=== PATIENT | male | born 1925 | race Caucasian/White ===

== ENCOUNTER 2016-12-03 15:35 | Observation (INO) | payer MEDICARE ==
[2016-12-03] MEDS ORDERED: NS 0.9% 1000 ML* 1,000 ML IV ONE (16:37)
[2016-12-03 17:01] LABS: Hematocrit 23 % (42-52); Hemoglobin 7.7 g/dl (14.0-18.0); Mean Corpuscular HGB Conc 34 g/dl (31-36); Mean Corpuscular Hemoglobin 31 pg (27-31); Mean Corpuscular Volume 91 fL (80-94); Mean Platelet Volume 9 um3 (7.4-10.4); Red Blood Count 2.47 10^6/ul (4.0-5.4); Red Cell Distribution Width 14 % (10.5-15); White Blood Count 7.4 10^3/ul (3.5-10.8)
[2016-12-03 17:16] LABS: Albumin 3.4 g/dL (3.2-5.2); BUN/Creatinine Ratio 13.6 (8-20); Calcium 8.9 mg/dL (8.6-10.3); EGFR African American 32.6 (>60); EGFR Non-African American 25.3 (>60); Globulin 2.9 g/dL (2-4); Potassium 4.1 mmol/L (3.5-5.0); Total Bilirubin 0.4 mg/dL (0.2-1.0); Total Protein 6.3 g/dL (6.4-8.9)
[2016-12-03 17:23] LABS: Troponin I 0.05 ng/mL (<0.04)
[2016-12-03] MEDS ORDERED: Aspirin Low Dose CHEW TAB* 81 MG ONE (17:58)
[2016-12-03] MEDS ORDERED: Aspirin Low Dose CHEW TAB* 81 MG PO ONE (17:59)
--- NOTE | 2016-12-03 18:09 | RAD ---
HISTORY: Chest pain, shortness of breath, CHF COMPARISONS: December 26, 2008 VIEWS:1: Single frontal portable view of the chest at 5:55 PM FINDINGS: LINES AND TUBES: None. CARDIOMEDIASTINAL SILHOUETTE: The cardiomediastinal silhouette is normal for portable technique. PLEURA: There is a moderate left pleural effusion LUNG PARENCHYMA: There is confluent alveolar opacification of left lung base ABDOMEN: The upper abdomen is clear. There is no subphrenic gas. BONES AND SOFT TISSUES: The patient is status post median sternotomy. IMPRESSION: LEFT LOWER LUNG CONSOLIDATION WITH LEFT PLEURAL EFFUSION. RECOMMEND FOLLOW-UP UNTIL RESOLUTION TO EXCLUDE UNDERLYING PULMONARY PARENCHYMAL PATHOLOGY.
[2016-12-03] MEDS ORDERED: Acetaminophen TAB* 325 MG PO PRN (18:48)
[2016-12-03] MEDS ORDERED: Temazepam CAP* 15 MG PO PRN (18:48)
[2016-12-03] MEDS ORDERED: Amitriptyline TAB* 25 MG PO PRN (18:49)
[2016-12-03] MEDS ORDERED: Furosemide IV* 10 MG/ML 10 ML VIAL (100 MG) IV ONE (18:50)
[2016-12-03] MEDS ORDERED: amLODIPine TAB* 5 MG PO ONE (18:56)
[2016-12-03 19:24] LABS: Urine Bacteria Absent (Absent); Urine Bilirubin Negative (Negative); Urine Glucose 1+(50 mg/dL) (Negative); Urine Nitrite Negative (Negative)
[2016-12-03 19:29] LABS: Digoxin 1.6 ng/ml (0.8-2.0)
--- NOTE | 2016-12-03 20:00 | ED ---
Garry Pan Billy, scribed for Adrian Ray MD on 12/03/16 at 1630 . Complex/Multi-Sys Presentation - HPI Summary HPI Summary: Patient is an 89 year-old male coming to [facility] from his PCP at the [place] for evaluation of a Hgb of 6.9. Patient is a poor historian, but his is with him in the room. Patient denies any chest pain or shortness of breath. In fact, he is asymptomatic other than feeling generally fatigued and weak and a decreased appetite. Denies dizziness. Denies bloody or black stools. Denies fevers/chills. Patient states he has been anemic since an aortic valve replacement 2 years ago. - History Of Current Complaint Chief Complaint: EDGeneral Time Seen by Provider: 12/03/16 16:16 Hx Obtained From: Patient, Family/Print Inspector Timing: Constant Severity Currently: Moderate Severity Initially: Moderate Location: Negative Aggravating Factor(s): n/a Alleviating Factor(s): n/a Associated Signs And Symptoms: Positive: Weakness, Other - fatigued. Negative: SOB, Chest Pain - Allergies/Home Medications Allergies/Adverse Reactions: Allergies Allergy/AdvReac Type Severity Reaction Status Date / Time Aspirin [From Aggrenox] Allergy Unknown Verified 12/03/16 18:20 Reaction Details Dipyridamole [From Aggrenox] Allergy Unknown Verified 12/03/16 18:20 Reaction Details Home Medications: Home Medications Amitriptyline TAB* [Elavil TAB*] 25 mg PO BEDTIME PRN 12/03/16 [History Confirmed 12/03/16] Aspirin EC Low Dose* [Ecotrin EC Low Dose 81 MG*] 81 mg PO DAILY 12/03/16 [ History Confirmed 12/03/16] Carvedilol TAB* [Coreg TAB*] 12.5 mg PO BID 12/03/16 [History Confirmed 12/03/16 ] Citalopram TAB* [CeleXA TAB*] 20 mg PO QAM 12/03/16 [History Confirmed 12/03/16] Clopidogrel TAB* [Plavix TAB*] 75 mg PO QAM 12/03/16 [History Confirmed 12/03/16 ] Cyanocobalamin TAB* [Vitamin B12 TAB*] 1,000 mcg PO DAILY 12/03/16 [History Confirmed 12/03/16] Digoxin TAB* [Lanoxin TAB*] 0.125 mg PO QAM 12/03/16 [History Confirmed 12/03/16 ] Folic Acid TAB* [Folvite TAB*] 1 mg PO DAILY 12/03/16 [History Confirmed ] Furosemide TAB* [Lasix TAB*] 40 mg PO DAILY PRN 12/03/16 [History Confirmed ] amLODIPine TAB* [Norvasc 5 mg TAB*] 10 mg PO QAM 12/03/16 [History Confirmed ] PMH/Surg Hx/FS Hx/Imm Hx Endocrine/Hematology History: Reports: Hx Anemia Cardiovascular History: Reports: Other Cardiovascular Problems/Disorders - aortic valve replacement - Surgical History Surgery Procedure, Year, and Place: jun 2014 aortic heart valve, hernia repair , two eye inplants. nasal surgury. open heart in the year 1999 Infectious Disease History: No Infectious Disease History: Denies: Traveled Outside the [place] in Last 30 Days - Family History Known Family History: Positive: Unknown - Patient is a poor historian. - Social History Alcohol Use: PT DRANK LONG AGO, HASN'T DRANK IN YEARS. Substance Use Type: Reports: None Smoking Status (MU): Former Smoker Type: Pipe Amount Used/How Often: SMOKED A PIPE ON OCCASION Length of Time of Smoking/Using Tobacco: 2-3 YEARS Have You Smoked in the Last Year: No Review of Systems Positive: Fatigue, Other - low Hgb Negative: Chest Pain Negative: Shortness Of Breath Positive: Diarrhea - intermittent, ongoing, unchanged today, Other - decreased appetite Positive: Weakness All Other Systems Reviewed And Are Negative: Yes Physical Exam - Summary Physical Exam Summary: The patient is well-nourished in no acute distress and in no acute pain. Patient is a poor historian. The skin is warm and dry and skin color reflects adequate perfusion. Diminished turgor. HEENT: The head is normocephalic and atraumatic. The pupils are equal and reactive. The conjunctivae are pale, clear, and without drainage. Nares are patent and without drainage. Mouth reveals dry mucous membranes and the throat is without erythema and exudate. The external ears are intact. The ear canals are patent and without drainage. The tympanic membranes are intact. Neck is supple with full range of motion and non-tender. There are no carotid bruits. There is no neck vein distension. Respiratory: Chest is non-tender. Lungs are clear to auscultation and breath sounds are symmetrical and equal. Cardiovascular: Heart is regularly bradycardic. There is a holosystolic murmur heard best in left 2nd intercostal space. Abdomen: The abdomen is soft and non-tender. There are normal bowel sounds heard in all four quadrants and there is no organomegaly palpated. Musculoskeletal: There is no back pain noted. Extremities are non-tender with full range of motion. There is good capillary refill. There is pitting edema in the bilateral lower extremities. Neurological: Patient is alert and oriented to person, place and time. The patient has symmetrical motor strength in all four extremities. Cranial nerves are grossly intact. Deep tendon reflexes are symmetrical and equal in all four extremities. Psychiatric: The patient has an appropriate affect and does not exhibit any anxiety or depression. Triage Information Reviewed: Yes Vital Signs On Initial Exam: Initial Vitals Temp Pulse Resp BP Pulse Ox 96.8 F 63 20 195/33 100 12/03/16 15:40 12/03/16 15:40 12/03/16 15:40 12/03/16 15:40 12/03/16 15:40 Vital Signs Reviewed: Yes - [place] Coma Scale Coma Scale Total: 15 Diagnostics - Vital Signs Vital Signs Temp Pulse Resp BP Pulse Ox 12/03/16 16:10 98.2 F 66 18 214/53 100 12/03/16 15:40 96.8 F 63 20 195/33 100 - Laboratory Lab Results: Lab Results 12/03/16 12/03/16 12/03/16 Range/Units 16:51 16:51 16:51 WBC 7.4 (3.5-10.8) 10^3/ul RBC 2.47 L (4.0-5.4) 10^6/ul Hgb 7.7 L (14.0-18.0) g/dl Hct 23 L (42-52) % MCV 91 (80-94) fL MCH 31 (27-31) pg MCHC 34 (31-36) g/dl RDW 14 (10.5-15) % Plt Count 207 (150-450) 10^3/ul MPV 9 (7.4-10.4) um3 Neut % (Auto) 56.0 (38-83) % Lymph % (Auto) 19.9 L (25-47) % Dunn % (Auto) 13.0 H (1-9) % Eos % (Auto) 10.6 H (0-6) % Baso % (Auto) 0.5 (0-2) % Absolute Neuts (auto) 4.1 (1.5-7.7) 10^3/ul Absolute Lymphs (auto) 1.5 (1.0-4.8) 10^3/ul Absolute Monos (auto) 1.0 H (0-0.8) 10^3/ul Absolute Eos (auto) 0.8 H (0-0.6) 10^3/ul Absolute Basos (auto) 0 (0-0.2) 10^3/ul Absolute Nucleated RBC 0 10^3/ul Nucleated RBC % 0 INR (Anticoag Therapy) 0.93 (0.89-1.11) Sodium 137 (133-145) mmol/L Potassium 4.1 (3.5-5.0) mmol/L Chloride 107 (101-111) mmol/L Carbon Dioxide 24 (22-32) mmol/L Anion Gap 6 (2-11) mmol/L BUN 33 H (6-24) mg/dL Creatinine 2.43 H (0.67-1.17) mg/dL Est GFR ( Amer) 32.6 (>60) Est GFR (Non-Af Amer) 25.3 (>60) BUN/Creatinine Ratio 13.6 (8-20) Glucose 97 (70-100) mg/dL Lactic Acid (0.5-2.0) mmol/L Calcium 8.9 (8.6-10.3) mg/dL Magnesium 2.0 (1.9-2.7) mg/dL Total Bilirubin 0.40 (0.2-1.0) mg/dL AST 15 (13-39) U/L ALT 8 (7-52) U/L Alkaline Phosphatase 74 (34-104) U/L Troponin I 0.05 H* (<0.04) ng/mL B-Natriuretic Peptide ( - 100) pg/mL Total Protein 6.3 L (6.4-8.9) g/dL Albumin 3.4 (3.2-5.2) g/dL Globulin 2.9 (2-4) g/dL Albumin/Globulin Ratio 1.2 (1-3) Digoxin 1.6 (0.8-2.0) ng/ml Blood Type Antibody Screen Antibody Identification Direct Antiglob Test 12/03/16 12/03/16 12/03/16 Range/Units 16:51 16:51 16:51 WBC (3.5-10.8) 10^3/ul RBC (4.0-5.4) 10^6/ul Hgb (14.0-18.0) g/dl Hct (42-52) % MCV (80-94) fL MCH (27-31) pg MCHC (31-36) g/dl RDW (10.5-15) % Plt Count (150-450) 10^3/ul MPV (7.4-10.4) um3 Neut % (Auto) (38-83) % Lymph % (Auto) (25-47) % Dunn % (Auto) (1-9) % Eos % (Auto) (0-6) % Baso % (Auto) (0-2) % Absolute Neuts (auto) (1.5-7.7) 10^3/ul Absolute Lymphs (auto) (1.0-4.8) 10^3/ul Absolute Monos (auto) (0-0.8) 10^3/ul Absolute Eos (auto) (0-0.6) 10^3/ul Absolute Basos (auto) (0-0.2) 10^3/ul Absolute Nucleated RBC 10^3/ul Nucleated RBC % INR (Anticoag Therapy) (0.89-1.11) Sodium (133-145) mmol/L Potassium (3.5-5.0) mmol/L Chloride (101-111) mmol/L Carbon Dioxide (22-32) mmol/L Anion Gap (2-11) mmol/L BUN (6-24) mg/dL Creatinine (0.67-1.17) mg/dL Est GFR ( Amer) (>60) Est GFR (Non-Af Amer) (>60) BUN/Creatinine Ratio (8-20) Glucose (70-100) mg/dL Lactic Acid 1.0 (0.5-2.0) mmol/L Calcium (8.6-10.3) mg/dL Magnesium (1.9-2.7) mg/dL Total Bilirubin (0.2-1.0) mg/dL AST (13-39) U/L ALT (7-52) U/L Alkaline Phosphatase (34-104) U/L Troponin I (<0.04) ng/mL B-Natriuretic Peptide 2156 H ( - 100) pg/mL Total Protein (6.4-8.9) g/dL Albumin (3.2-5.2) g/dL Globulin (2-4) g/dL Albumin/Globulin Ratio (1-3) Digoxin (0.8-2.0) ng/ml Blood Type O Positive Antibody Screen Positive Antibody Identification Anti-Fya Direct Antiglob Test Negative Result Diagrams: 12/03/16 16:51 12/03/16 16:51 Lab Statement: Any lab studies that have been ordered have been reviewed, and results considered in the medical decision making process. - Radiology CXR Radiology Interpretation Completed By: Radiologist - LEFT LOWER LUNG CONSOLIDATION WITH LEFT PLEURAL EFFUSION. RECOMMEND FOLLOW-UP UNTIL RESOLUTION TO EXCLUDE UNDERLYING PULMONARY PARENCHYMAL PATHOLOGY. - EKG 1549 EKG Interpretation: NSR 68 bpm, LAD, LVH, PVCs, ST depression in lateral leads. 1743 EKG Interpretation: NSR 90 bpm, ST depression V4-V6, TWI in I and aVL EKG Comparison: Other - More pronounced ST depression compared to earlier EKG today Re-Evaluation - Re-Evaluation First Eval Re-Evaluation Time: 17:35 Change: Worse Comment: Patient c/o chest pain. Second Eval Re-Evaluation Time: 18:03 Comment: Labs reviewed with patient and . Patient, at this time, is very hesitant to stay for admission. Complex Multi-Symp Course/Dx Assessment/Plan: 89 year-old male coming to [facility] for evaluation of Hgb of 6.9 [facility]. Patient was initially essentially asymptomatic in the ED. He was hydrated with IV fluids. Initial EKG shows NSR 68 bpm, LAD, LVH, PVCs, ST depression in lateral leads. After approximately 2 hours, he began to develop chest pain. Troponin is 0.05. Repeat EKG shows more pronounced ST depression compared to the earlier EKG today. CXR shows left lower lung consolidation with left pleural effusion. Patient care was discussed with Dr. Jerez who will admit the patient to her services. - Diagnoses Differential Diagnoses/HQI/PQRI: Cardiac Ischemia, Other - myocardial infarct, pleural effusion, renal insufficiency, anemia Provider Diagnoses: Chest pain, Anemia, Renal insufficiency, Pleural effusion, left - Physician Notifications Discussed Care Of Patient With: Dr. Catalan (hospitalist) @ 1641: case discussed. Dr. Jerez (hospitalist) @ 1840: accepted patient for admission. Dr. Ancelmo Bonilla ([facility]) @ 1858: case discussed. Discharge - Discharge Plan Condition: Stable Disposition: ADMITTED TO [facility] documentation as recorded by the Garry alva Billy accurately reflects the service I personally performed and the decisions made by me, Adrian Ray MD.
--- NOTE | 2016-12-03 20:58 | RAD ---
HISTORY: Left-sided effusion, rule out mass COMPARISONS: November 26, 2004 TECHNIQUE: Multiple contiguous axial CT scans of the chest were obtained without intravenous contrast. Coronal and sagittal multiplanar reformations are also submitted for review. FINDINGS: The study is limited by the lack of intravenous contrast. This limits evaluation of the solid organs and vasculature. NECK AND THYROID: The lower neck and thyroid are unremarkable. CHEST WALL: There is no lower cervical, axillary, or supraclavicular lymphadenopathy by size criteria. HEART AND PERICARDIUM: There is biatrial and biventricular enlargement. There is a prosthetic aortic valve AORTA AND PULMONARY VASCULATURE: There is calcification of the thoracic aorta. The pulmonary vasculature is unremarkable. MEDIASTINUM: There is a pretracheal lymph node measuring 1.8 cm in short axis. This is increased in size compared to the previous examination GUANACO: Evaluation of the guanaco is limited by the lack of intravenous contrast. There is no obvious hilar lymphadenopathy by size criteria. AIRWAY AND ESOPHAGUS: The airway is unremarkable, without endobronchial filling defect. The esophagus is grossly normal. LUNG PARENCHYMA: There is linear atelectasis of the left lung base. There is minimal compressive atelectasis of the right lung base. PLEURA: There is a small layering right pleural effusion. There is a partially loculated left pleural effusion UPPER ABDOMEN: Gallstones are noted. BONES AND SOFT TISSUES: The patient is status post median sternotomy. Degenerative changes are noted of the spine OTHER: None. IMPRESSION: 1. PARTIALLY LOCULATED LEFT PLEURAL EFFUSION. SMALL LAYERING RIGHT PLEURAL EFFUSION. 2. BIBASILAR ATELECTASIS. 3. THERE IS AN ENLARGED MEDIASTINAL LYMPH NODE THAT HAS PROGRESSED IN SIZE WHEN COMPARED TO 2004. 4. CARDIOMEGALY
[2016-12-03] MEDS: Carvedilol TAB* 6.25 MG PO SCH (21:27)
[2016-12-03] MEDS: Heparin VIAL(*) 5000 UNITS/ML VIAL (FIVE THOUSAND) SUBCUT SCH (21:27)
[2016-12-03] MEDS: Nitroglycerin 2% OINT* 1 GM PAK TOPICAL SCH (21:27)
[2016-12-03] MEDS: hydrALAZINE IV* 20 MG/ML VIAL IV SLOW PU PRN (21:28)
[2016-12-03] MEDS: Nitro Patch/OINT Remove PATCH OFF SCH (21:29)
--- NOTE | 2016-12-04 00:28 | HP ---
CC: Dr. Torres; Dr. Taylor, [facility]; Dr. Kaur HISTORY AND PHYSICAL: DATE OF ADMISSION: 12/03/16 PRIMARY CARE PROVIDER: Dr. Torres. CHIEF COMPLAINT: Abnormal blood work. HISTORY OF PRESENT ILLNESS: Mr. Johan Alexander is an 89-year-old male who went for his yearly physic al with [facility] and was noted to have hemoglobin at 6.9. Subsequently, he was directed to the ED for evaluation and transfusion. He was otherwise asymptomatic apart from multiple chronic compla ints that have been unchanged in the past several months and those included bilateral leg edema. Th e patient also stated that occasionally he gets a bad cough and that is when his gives him a do se of Lasix. His stated that she usually gives the patient a dose of Lasix on a weekly basis. From the patient's primary care provider's report in the summer of 2015, the patient's systolic pre ssures are frequently in the 190s and when the patient is evaluated today in the emergency departmen t, his systolic pressures are in the 200s. The patient had been asymptomatic until he received a lakesha galileo of intravenous hydration in the ER. After approximately a liter of intravenous hydration, he st arted experiencing sharp left chest discomfort. He still states that when he takes a deep breath, t here is some discomfort present. He denies worsening shortness of breath. His EKG is abnormal, but the only EKG I have for comparison is 8 years old. The patient otherwise i s very frail. He ambulates rarely and with a rolling walker. He has been losing weight and has been poor appetite as per his . He usually defers to his providing information throughout this interview. The patient is going to be placed on overnight observation. It appears that the patient has left-si ded pleural effusion most likely due to CHF with brain natriuretic peptide being over 2000. I suspe ct the acute diastolic CHF is due to uncontrolled hypertension. PAST MEDICAL HISTORY: 1. History of TIA. 2. Hypertension. 3. Coronary artery disease, status post stenting in 2013. 4. 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 5. Osteoarthritis. 6. Low back pain. 7. Depression. 8. BPH. 9. Graves disease. 10. Cataract surgery bilaterally. 11. Aortic valve stenosis, status post aortic valve replacement, which was transcatheter as mention ed above. 12. History of perirectal mass diagnosed on pelvis CT in the fall of 2015 under the care of Dr. Abilio escobedo. The patient stated that that was "forgotten." 13. 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 14. History of chronic anemia, under the care of Dr. Kaur. 15. Chronic kidney disease stage 3. MEDICATIONS: 1. Lasix 40 mg daily p.r.n. As above mentioned, the patient had been getting it on a weekly basis. 2. Folic acid 1 mg daily. 3. Vitamin B12 1000 mcg daily. 4. Elavil 25 mg at bedtime p.r.n. 5. Celexa 20 mg daily. 6. Aspirin 81 mg daily. 7. Digoxin 0.125 mg daily. 8. Plavix 75 mg daily. 9. Norvasc 10 mg daily. 10. Coreg 12.5 mg b.i.d. ALLERGIES: Include AGGRENOX and PACERONE. FAMILY HISTORY: Reviewed and noncontributory. SOCIAL HISTORY: The patient smoked for a total of 20 years and stopped in 1962. The patient denies any alcohol or drug use. He is retired, lives with his , who is his surrogate. REVIEW OF SYSTEMS: Please see history of present illness. The patient stated that he has no proble ms sleeping, but sometimes he gets a "bad cough." That is when his administers Lasix. It occu rs approximately weekly. The patient has had approximately 15 pounds of weight loss in the past yea r and he has very poor appetite. He has very limited ambulation due to his legs being "weak." He a mbulates with a rolling walker, but very short distances. He denies any black stools, hematemesis, or melena. He states that he never had chest pain like today before. As per the patient's , he is forgetful and hard of hearing. All the remaining 14 systems were reviewed with the patient and were otherwise negative. PHYSICAL EXAMINATION GENERAL: The patient is a very pleasant 89-year-old male, cachectic appearing, with a BMI of 16. T he patient is hard of hearing. He is alert and oriented x3 with poor short-term memory. VITAL SIGNS: Blood pressure of 214/53, heart rate of 79 and regular, respiratory rate 18, oxygen sa turation 100% on 2 L of oxygen nasal cannula, and temperature of 98.2. HEENT: Head: Atraumatic, normocephalic. Eyes: Pupils equal, reactive to light and accommodation. Oropharynx clear. Mucosa moist. NECK: Supple. Positive for JVD bilaterally. RESPIRATORY: Crackles at bilateral bases, left more than right. CARDIOVASCULAR: Regular rate and rhythm with 1/6 systolic ejection murmur on auscultation at the le ft upper sternal border. ABDOMEN: Soft, nontender. Bowel sounds present in all 4 quadrants. EXTREMITIES: There is +1 pitting pedal edema. Pulses are +2 bilaterally. There is no clubbing or cyanosis. NEUROLOGIC EVALUATION: Speech clear. Cranial nerves II through XII grossly intact. Motor strength is 5/5 bilaterally. The patient has presbycusis. LABORATORY DATA: Show a white blood cell count of 7.4, hemoglobin of 7.7, hematocrit of 23, and pl atelets of 207. Sodium was 137, potassium 4.1, chloride 107, carbon dioxide 24, BUN 33, creatinine 2.43. The patien t's troponin was 0.05. Brain natriuretic peptide was 2156. Liver function tests were unremarkable. Urinalysis showed positive for +3 protein, hyaline granular casts, absent bacteria, absent wbc's, no nitrates or esterase. Digoxin level was 1.6. The patient's EKG shows sinus tachycardia with a heart rate of 90 beats per minute with ST depressio ns in leads V4 to V6, which are new comparing to EKG from 2009 that is available for comparison. Portable chest x-ray, impression: "Left lower lobe consolidation with left pleural effusion. Recom mend followup resolution to exclude underlying pulmonary parenchymal pathology." ASSESSMENT AND PLAN: 1. In regards to the patient's chest pain: Currently, the patient is "almost chest pain-free." It appears to be pleuritic and sharp. I suspect that the patient's uncontrolled blood pressures and c ongestive heart failure when he received intravenous fluids, it exacerbated his chronic problems wit h congestive heart failure. He does have left-sided pleural effusion which probably caused for the patient to experience the pain. Nevertheless, his troponin is mildly elevated at 0.05, not signific antly so in consideration with his chronic kidney disease. At this point, I will continue on repeat ing his troponins and observe on telemetry monitored bed. The patient has EKG changes, but unfortun ately, those are compared with an EKG from 8 years ago. I will try to obtain medical records from [place] Torres' or Dr. Taylor's office although it is Tuesday night and may be difficult to do. 2. In regards to the patient's acute diastolic congestive heart failure exacerbation, the patient i s going to be placed on intravenous Lasix. I will also place the patient on nitro paste and continu e his outpatient blood pressure medications. It appears the patient's systolic pressures have not b een controlled for quite sometime. 3. In regards to the patient's history of coronary artery disease, aspirin and Plavix are going to be continued. At this point, I do not believe that the patient's pain is due to angina. 4. In regards to the patient's anemia, the patient has a history of chronic anemia for which he is being followed by Dr. Kaur. His last hemoglobin in September 2016 was 7.8. At this point, we kb l continue to monitor and not transfuse due to the patient's congestive heart failure. I am afraid that if the patient is faced with too much volume, it may exacerbate his ongoing problem and discomf ort. 5. The patient's chronic kidney disease with creatinine at baseline, which is going to be monitored during diuresis. 6. The patient's uncontrolled hypertension which is most likely the cause of the patient's diastoli c congestive heart failure, is going to be hopefully better controlled after the patient's nitroglyc romel is going to be administered as well as diuretics. 7. For DVT prophylaxis, the patient has a history of deep venous thrombosis and he is status post I VC filter placement. He is at high risk for recurrent deep venous thrombosis and he is going to be placed on subcutaneous heparin. 8. Code status was discussed with the patient. The patient wishes to be a full code. His surrogat e is his . TIME SPENT: Approximately 70 minutes were spent on admission of this patient, more than half that t thien was spent [id number] with the patient during the interview and physical exam. [id number]/[facility] #: [id number]
[2016-12-04 02:34] LABS: Comments Flag Yes
[2016-12-04 02:37] LABS: Add Diff/Slide Review? Slide Review Added; Hematocrit 19 % (42-52); Hemoglobin 6.5 g/dl (14.0-18.0); Mean Corpuscular HGB Conc 34 g/dl (31-36); Mean Corpuscular Hemoglobin 31 pg (27-31); Mean Corpuscular Volume 92 fL (80-94); Mean Platelet Volume 9 um3 (7.4-10.4); Red Cell Distribution Width 14 % (10.5-15); White Blood Count 6.2 10^3/ul (3.5-10.8)
[2016-12-04 02:49] LABS: Troponin I 0.06 ng/mL (<0.04)
[2016-12-04] MEDS ORDERED: Furosemide IV* 10 MG/ML 10 ML VIAL (100 MG) IV ONE (02:56)
[2016-12-04] MEDS: Nitroglycerin 2% OINT* 1 GM PAK TOPICAL SCH ×2 (03:22→14:46)
[2016-12-04] MEDS: Nitro Patch/OINT Remove PATCH OFF SCH ×2 (03:24→14:05)
[2016-12-04 03:38] LABS: BUN/Creatinine Ratio 13.3 (8-20); Calcium 8.3 mg/dL (8.6-10.3); EGFR African American 32.9 (>60); EGFR Non-African American 25.6 (>60)
[2016-12-04] MEDS: hydrALAZINE IV* 20 MG/ML VIAL IV SLOW PU PRN (05:29)
[2016-12-04] MEDS: Heparin VIAL(*) 5000 UNITS/ML VIAL (FIVE THOUSAND) SUBCUT SCH ×2 (05:29→14:06)
[2016-12-04] MEDS ORDERED: Digoxin TAB* 0.125 MG PO SCH (09:00)
[2016-12-04] MEDS ORDERED: Clopidogrel TAB* 75 MG PO SCH (09:00)
[2016-12-04] MEDS ORDERED: Folic Acid TAB* 1 MG PO SCH (09:00)
[2016-12-04] MEDS ORDERED: Cyanocobalamin TAB* 500 MCG PO SCH (09:00)
[2016-12-04] MEDS ORDERED: amLODIPine TAB* 5 MG PO SCH (09:00)
[2016-12-04] MEDS ORDERED: Citalopram TAB* 20 MG PO SCH (09:00)
[2016-12-04] MEDS ORDERED: Aspirin EC Low Dose* 81 MG TAB.EC PO SCH (09:00)
[2016-12-04] MEDS: Carvedilol TAB* 6.25 MG PO SCH (09:07)
[2016-12-04] MEDS: Furosemide IV* 10 MG/ML VIAL (40 MG) IV SCH ×2 (09:07→18:10)
[2016-12-04] MEDS ORDERED: Carvedilol TAB* 3.125 MG PO SCH (11:00)
[2016-12-04 15:21] LABS: Hematocrit 24 % (42-52); Hemoglobin 8.1 g/dl (14.0-18.0); Mean Corpuscular HGB Conc 34 g/dl (31-36); Mean Corpuscular Hemoglobin 30 pg (27-31); Mean Corpuscular Volume 89 fL (80-94); Mean Platelet Volume 9 um3 (7.4-10.4); Red Blood Count 2.71 10^6/ul (4.0-5.4); Red Cell Distribution Width 16 % (10.5-15); White Blood Count 6.3 10^3/ul (3.5-10.8)
[2016-12-04 15:31] VITALS: BP 186/48
--- NOTE | 2016-12-05 04:25 | DS ---
CC: Dr. Torres; Dr. Taylor; Dr. Kaur DISCHARGE SUMMARY: DATE OF ADMISSION: 12/03/16 DATE OF DISCHARGE: 12/04/16 PRIMARY CARE PROVIDER: Dr. Torres. DISCHARGE DIAGNOSES: 1. Acute diastolic congestive heart failure exacerbation. 2. Worsening of chronic normocytic anemia, status post 1 unit of packed red blood cell transfusion during the patient's hospital stay. 3. Loculated small left-sided pleural effusion, question of chronicity. The patient has history of effusions in the past. 4. Left-sided pleuritic chest pain, intermittent, most likely due to the above- mentioned effusions . MEDICATIONS AT DISCHARGE: Include: 1. Elavil 25 mg at bedtime. 2. Aspirin 81 mg daily. 3. Coreg 12.5 mg b.i.d. with an added dose of 3.125 mg b.i.d. making together a dose of 15.625 mg b .i.d. 4. Celexa 20 mg daily. 5. Plavix 75 mg daily. 6. Vitamin B12 1000 mcg daily. 7. Digoxin 0.125 mg daily. 8. Folic acid 1 mg daily. 9. Lasix 20 mg daily. 10. Norvasc 10 mg daily. The changes include furosemide that was increased to a daily dose of 20 mg. Previously, the patient was taking 40 mg on a weekly basis and the patient's Coreg was increased from 12.5 mg b.i.d. to 15.6 25 mg b.i.d. During the patient's hospital stay, he was transfused a total of 1 unit of packed red blood cells. LABORATORY DATA AND STUDIES PERFORMED DURING THE HOSPITAL STAY: On 12/04/16, white blood cell count of 6.3, hemoglobin of 8.1, hematocrit of 24, and platelets of 179. Sodium was 136, potassium 4.0, chloride 109, carbon dioxide 22, BUN 32, creatinine 2.41. Troponin w as 0.05 and 0.06. Brain natriuretic peptide was 2156. Chest CT obtained without contrast on 12/03/16, impression: "Partially located left pleural effusio n. Small layering right pleural effusion. Bibasilar atelectasis. There is an enlarged mediastinal lymph node that has progressed in size when compared to the study from 2004 and the lymph node liliana ures 1.8 cm. Cardiomegaly." HOSPITALIZATION COURSE: Johan Alexander is an 89-year-old male with multiple chronic conditions as me ntioned in my history and physical on 12/03/16 that includes coronary artery disease, transaortic va lve replacement in 2013, BPH, history of perirectal mass diagnosed in the past as well as DVT and IV C filter placement. The patient also has chronic anemia and chronic kidney disease stage 3. He pre sented to the hospital basically asymptomatic with a note that his hemoglobin was noted to be 6.9 as an outpatient on his routine blood work. When he came to the hospital, he received under a liter o f intravenous fluids and at that point, he started developing chest pain. The chest pain was pleuri tic, localized in the left lower chest. The patient's systolic pressures were also noted to be in t he 200s. From previous medical records, the patient has a history of an uncontrolled hypertension with blood pressure running in the 180s to 190s. The patient had JVD and was noted to be in acute diastolic CHF most likely exacerbated by intravenou s fluids received in the ED. At this point, the patient was placed on overnight observation. His t roponins continued to be indeterminate at 0.05 and 0.06, but with that and consideration of the umer ent's chronic kidney disease stage 3, it is most likely the patient's baseline. His EKG did show ch anges that were different comparing from an EKG from 2008. Nevertheless, the patient's symptoms of chest pain resolved once we started diuresis. The patient complained of no more chest pain througho ut his hospital stay. His blood pressure was lowered somewhat after his diuresis and institution of an additional dose of Coreg. He most likely will require more blood pressure medication management as an outpatient. His pressures on the day of discharge had been in between 150 to 180 systolicall y. After the intravenous fluids, we repeated the patient's H and H and his hemoglobin actually dropped to 6.5. At that point, he was a good candidate for blood transfusion. He received 1 unit of packed red blood cells followed up with 40 mg of Lasix IV. His hemoglobin at the time of discharge was 8. 1. At this point at discharge, I recommended for the patient to continue Lasix on a daily basis. Previ ously, the patient was taking it only when he "started coughing when lying down." He also was added on an additional small dose of Coreg. The patient is recommended to follow up with Dr. Torres in approximately 4 to 7 days to follow up on his anemia as well as on his uncontrolled blood pressure and CHF. PHYSICAL EXAMINATION AT THE TIME OF DISCHARGE: Blood pressure 152/29, heart rate of 63 and regular, respiratory rate 20, oxygen saturation 92% on room air, temperature 98.5. General: The patient is a very pleasant 89-year-old male, who is forgetful, but in no acute distress. The patient is alert and oriented x2. HEENT: Head: Atraumatic, normocephalic. Eyes: Pupils equal, reactive to light and accommodation. Oropharynx clear. Mucosa moist. Neck: Supple. No JVD, no bruit bilaterally. Cardiovascular: Regular rate and rhythm. No murmur. Respiratory: Crackles and rhonchi at left pat ng base. Abdomen: Soft, nontender. Bowel sounds present in all 4 quadrants. Extremities: There i s +1 pitting pedal edema bilaterally. Pulses +2 bilaterally. There is no clubbing or cyanosis. Queenie ro Evaluation: The patient is forgetful, hard of hearing. Speech is clear. Cranial nerves II throu gh XII grossly intact. Motor strength is 5/5 bilaterally. Please note this is a short summary of the patient's hospital stay. Please refer to further medical records for details. [id number]/[facility] #: [id number]
== END 2016-12-04 18:20 | disposition home or self-care (01) ==
LOC: ED 15:35 → MEDTELE 18:47
PROVIDERS: ADMIT Internal Medicine; ATTEND Internal Medicine
DX: I13.0 Hypertensive heart and chronic kidney disease with heart failure and stage 1 through stage 4 chronic kidney disease, or unspecified chronic kidney disease (principal); I50.31 Acute diastolic (congestive) heart failure; N18.9 Chronic kidney disease, unspecified; D64.9 Anemia, unspecified; J90 Pleural effusion, not elsewhere classified; R07.81 Pleurodynia; Z79.02 Long term (current) use of antithrombotics/antiplatelets; Z79.82 Long term (current) use of aspirin; Z79.899 Other long term (current) drug therapy; Z88.8 Allergy status to other drugs, medicaments and biological substances; I25.10 Atherosclerotic heart disease of native coronary artery without angina pectoris; Z95.5 Presence of coronary angioplasty implant and graft; F32.9 Major depressive disorder, single episode, unspecified; N40.0 Benign prostatic hyperplasia without lower urinary tract symptoms; Z86.73 Personal history of transient ischemic attack (TIA), and cerebral infarction without residual deficits; Z95.2 Presence of prosthetic heart valve; Z87.891 Personal history of nicotine dependence; I44.4 Left anterior fascicular block
CPT/HCPCS: 36415; 71010; 71250; 80048; 80053; 80162; 81003; 81015; 83605; 83735; 83880; 84484; 85025; 85027; 85610; 86850; 86870; 86880; 86900; 86901; 86905; 86922; 93005; 94760; 96372; 96374; 96375; 99284; A9270-GY; G0378; J0360; J1644; J1940; P9040

== ENCOUNTER 2017-09-11 09:40 | Inpatient (IN) | payer MEDICARE ==
[2017-09-11] MEDS ORDERED: NS 0.9% 1000 ML* 1,000 ML IV ONE (09:55)
--- NOTE | 2017-09-11 10:25 | RAD ---
INDICATION: Altered mental status. COMPARISON: Comparison is made with a prior CT of the brain from December 27, 2008. TECHNIQUE: Contiguous axial sections of the brain were obtained from the skull base to the vertex without contrast. FINDINGS: The ventricles, cisterns and sulci are enlarged consistent with diffuse atrophy. There are small areas of decreased density in the subcortical and periventricular white matter suggestive of mild chronic small vessel ischemic changes. No other focal abnormality or mass effect is seen. There is no evidence for hemorrhage. No significant focal osseous abnormality is seen. The visualized portion of the paranasal sinuses and mastoid air cells appear clear. IMPRESSION: 1. NO EVIDENCE FOR ACUTE INTRACRANIAL ABNORMALITY. 2. ATROPHY AND FINDINGS CONSISTENT WITH CHRONIC SMALL VESSEL ISCHEMIC CHANGES.
[2017-09-11] MEDS ORDERED: hydrALAZINE IV* 20 MG/ML VIAL IV SLOW PU ONE ×2 (10:27→13:28)
--- NOTE | 2017-09-11 10:28 | RAD ---
INDICATION: Altered mental status. COMPARISON: Comparison is made with prior chest x-ray studies from December 26, 2008 and December 03, 2016. TECHNIQUE: A portable view of the chest was obtained. FINDINGS: The patient is status post sternotomy and aortic valve surgery. The heart is mildly enlarged and unchanged from the prior exam. There is volume loss in the left lung similar to the prior exam. There is increased density in the mid and lower left lung field and pleural thickening present laterally at the left lung base which appears slightly less prominent than on the prior study. The right lung appears clear. IMPRESSION: PLEURAL AND PARENCHYMAL CHANGES IN THE LEFT LUNG WHICH LIKELY REPRESENT CHRONIC SCARRING ALTHOUGH AN ACUTE PROCESS CANNOT BE EXCLUDED.
[2017-09-11 10:46] LABS: ABS Basophils 0 10^3/ul (0-0.2); ABS Eosinophils 0.6 10^3/ul (0-0.6); ABS Monocytes 0.6 10^3/ul (0-0.8); ABS Neutrophils 4.2 10^3/ul (1.5-7.7); ABS Nucleated RBC 0 10^3/ul; Eosinophil % 9.9 % (0-6); Hematocrit 20 % (42-52); Hemoglobin 6.9 g/dl (14.0-18.0); Lymphocyte % 15.3 % (25-47); Mean Corpuscular HGB Conc 35 g/dl (31-36); Mean Corpuscular Hemoglobin 32 pg (27-31); Mean Corpuscular Volume 92 fL (80-94); Mean Platelet Volume 8 um3 (7.4-10.4); Nucleated Red Blood Cells % 0; Platelet Count 184 10^3/ul (150-450); Red Blood Count 2.16 10^6/ul (4.0-5.4); Red Cell Distribution Width 13 % (10.5-15); White Blood Count 6.5 10^3/ul (3.5-10.8)
[2017-09-11 10:58] LABS: INR 0.93 (0.77-1.02)
[2017-09-11 10:59] LABS: EGFR Non-African American 18.6 (>60)
[2017-09-11 12:02] LABS: Urine Appearance Clear; Urine Blood Negative (Negative); Urine Color Yellow; Urine Ketones Negative (Negative); Urine Protein 2+(100 mg/dL) (Negative); Urine Specific Gravity 1.011 (1.010-1.030); Urine Urobilinogen Negative (Negative)
[2017-09-11 12:35] LABS: EGFR Non-African American 19.4 (>60)
[2017-09-11] MEDS ORDERED: Al Hydrox/Mg Hydrox/Simet LIQ* 30 ML UDC PO PRN (15:18)
[2017-09-11] MEDS ORDERED: Acetaminophen TAB* 325 MG PO PRN (15:18)
[2017-09-11] MEDS ORDERED: Amitriptyline TAB* 25 MG PO PRN (15:34)
[2017-09-11] MEDS ORDERED: hydrALAZINE IV* 20 MG/ML VIAL IV SLOW PU PRN (15:35)
--- NOTE | 2017-09-11 15:41 | ED ---
Kevin Pan Natalie, scribed for Bon Castaneda MD on 09/11/17 at 1001 . Altered Mental Status - HPI Summary HPI Summary: The pt is an 88 y/o M BIBA presenting to the ED c/o weakness and lethargy starting this morning. Per EMS, pt was in bed, someone from plane rescue tried to wake him. Pt woke up, person on scene knew pt and realized pt was not in his normal state. The pt wouldnt answer questions like what the date is, but he was alert and knew who his was. He did not want to come to the ED (kept saying no) but wanted him to come in. There was a similar episode of this that happened a week ago, but he was more alert. Per EMS, the pt is currently awake and is somewhat talkative, but he is leaning to his left side. His says that he hasnt been eating and has wanted him to come into the ED for a month. The pt states he is not currently in pain. He did not take his medications this morning. He has hx of strokes. - History Of Current Complaint Chief Complaint: EDAltMentalStatus Stated Complaint: AMS Hx Obtained From: Patient, EMS Onset/Duration: Still Present Timing: Lasting Minutes Severity Initially: Mild Severity Currently: Mild Character: Responsiveness, Lethargy Aggravating Factor(s): Nothing Alleviating Factor(s): Nothing Associated Signs And Symptoms: Positive: Weakness - Allergies/Home Medications Allergies/Adverse Reactions: Allergies Allergy/AdvReac Type Severity Reaction Status Date / Time Aspirin [From Aggrenox] Allergy Unknown Verified 12/03/16 18:20 Reaction Details Dipyridamole [From Aggrenox] Allergy Unknown Verified 12/03/16 18:20 Reaction Details PMH/Surg Hx/FS Hx/Imm Hx Previously Healthy: No Endocrine/Hematology History: Reports: Hx Anemia Cardiovascular History: Reports: Hx Hypertension, Other Cardiovascular Problems/ Disorders - aortic valve replacement Sensory History: Reports: Hx Contacts or Glasses Denies: Hx Hearing Aid Opthamlomology History: Reports: Hx Contacts or Glasses - Surgical History Surgery Procedure, Year, and Place: jun 2014 aortic heart valve, hernia repair , two eye inplants. nasal surgury. open heart in the year 1999 Infectious Disease History: No Infectious Disease History: Denies: Traveled Outside the [place] in Last 30 Days - Family History Known Family History: Positive: Cardiac Disease, Hypertension - Social History Alcohol Use: PT DRANK LONG AGO, HASN'T DRANK IN YEARS. Substance Use Type: Reports: None Smoking Status (MU): Former Smoker Type: Pipe Amount Used/How Often: SMOKED A PIPE ON OCCASION Length of Time of Smoking/Using Tobacco: 2-3 YEARS Have You Smoked in the Last Year: No Review of Systems Negative: Fever Neurological: Other - lethargy, decreased speech Positive: Weakness All Other Systems Reviewed And Are Negative: Yes Physical Exam - Summary Physical Exam Summary: Appearance: Well-appearing, Appears dehydrated Skin: Warm, Dry, Pale, No decubitus ulcers noted Eyes: Normal, Extraocular movements intact, PERRL ENT: Normal, Mucus membranes moist, Speaks in one word sentences Neck: Supple, nontender, No masses Respiratory: Lung sounds clear bilaterally Cardiovascular: 2/6 systolic murmur, Midsternal scar suggestive of CABG Abdomen: Soft, nontender, no distension Bowel: Present Musculoskeletal: Normal, Strength/ROM Intact, Normal strength and sensation in all upper and lower extremities Neurological: Normal, A&Ox3, Pt is able to respond in one word sentences and follow commands, Contraction of all four extremities Psychiatric: Normal Triage Information Reviewed: Yes Vital Signs On Initial Exam: Initial Vitals Temp Pulse Resp BP Pulse Ox 97.3 F 56 16 226/179 100 09/11/17 09:41 09/11/17 09:41 09/11/17 09:41 09/11/17 09:41 09/11/17 09:41 Vital Signs Reviewed: Yes Diagnostics - Vital Signs Vital Signs Temp Pulse Resp BP Pulse Ox 09/11/17 09:41 97.3 F 56 16 226/179 100 - Laboratory Lab Results: Lab Results 09/11/17 09/11/17 09/11/17 Range/Units 10:29 10:29 10:29 WBC 6.5 (3.5-10.8) 10^3/ul RBC 2.16 L (4.0-5.4) 10^6/ul Hgb 6.9 L (14.0-18.0) g/dl Hct 20 L (42-52) % MCV 92 (80-94) fL MCH 32 H (27-31) pg MCHC 35 (31-36) g/dl RDW 13 (10.5-15) % Plt Count 184 (150-450) 10^3/ul MPV 8 (7.4-10.4) um3 Neut % (Auto) 64.6 (38-83) % Lymph % (Auto) 15.3 L (25-47) % [place] % (Auto) 9.7 H (1-9) % Eos % (Auto) 9.9 H (0-6) % Baso % (Auto) 0.5 (0-2) % Absolute Neuts (auto) 4.2 (1.5-7.7) 10^3/ul Absolute Lymphs (auto) 1.0 (1.0-4.8) 10^3/ul Absolute Monos (auto) 0.6 (0-0.8) 10^3/ul Absolute Eos (auto) 0.6 (0-0.6) 10^3/ul Absolute Basos (auto) 0 (0-0.2) 10^3/ul Absolute Nucleated RBC 0 10^3/ul Nucleated RBC % 0 INR (Anticoag Therapy) 0.93 (0.77-1.02) APTT 39.2 H (26.0-36.3) seconds Sodium 133 (133-145) mmol/L Potassium 4.4 (3.5-5.0) mmol/L Chloride 101 (101-111) mmol/L Carbon Dioxide 27 (22-32) mmol/L Anion Gap 5 (2-11) mmol/L BUN 53 H (6-24) mg/dL Creatinine 3.16 H (0.67-1.17) mg/dL Est GFR ( Amer) 24.0 (>60) Est GFR (Non-Af Amer) 18.6 (>60) BUN/Creatinine Ratio 16.8 (8-20) Glucose 108 H (70-100) mg/dL Lactic Acid (0.5-2.0) mmol/L Calcium 8.8 (8.6-10.3) mg/dL Magnesium 2.2 (1.9-2.7) mg/dL Total Bilirubin 0.40 (0.2-1.0) mg/dL AST 15 (13-39) U/L ALT 8 (7-52) U/L Alkaline Phosphatase 75 (34-104) U/L Myoglobin 80.3 (17.4-105.7) ng/mL Troponin I 0.04 H* (<0.04) ng/mL Total Protein 6.2 L (6.4-8.9) g/dL Albumin 3.1 L (3.2-5.2) g/dL Globulin 3.1 (2-4) g/dL Albumin/Globulin Ratio 1.0 (1-3) TSH 82.26 H (0.34-5.60) mcIU/mL Urine Color Urine Appearance Urine pH (5-9) Ur Specific [place] (1.010-1.030) Urine Protein (Negative) Urine Ketones (Negative) Urine Blood (Negative) Urine Nitrate (Negative) Urine Bilirubin (Negative) Urine Urobilinogen (Negative) Ur Leukocyte Esterase (Negative) Urine WBC (Auto) (Absent) Urine RBC (Auto) (Absent) Ur Squamous Epith Cells (Absent) Urine Bacteria (Absent) Hyaline Casts (Absent) Urine Glucose (Negative) Digoxin 3.8 H* (0.8-2.0) ng/ml Blood Type Antibody Screen Antibody Identification Direct Antiglob Test 09/11/17 09/11/17 09/11/17 Range/Units 10:29 10:29 11:40 WBC (3.5-10.8) 10^3/ul RBC (4.0-5.4) 10^6/ul Hgb (14.0-18.0) g/dl Hct (42-52) % MCV (80-94) fL MCH (27-31) pg MCHC (31-36) g/dl RDW (10.5-15) % Plt Count (150-450) 10^3/ul MPV (7.4-10.4) um3 Neut % (Auto) (38-83) % Lymph % (Auto) (25-47) % [place] % (Auto) (1-9) % Eos % (Auto) (0-6) % Baso % (Auto) (0-2) % Absolute Neuts (auto) (1.5-7.7) 10^3/ul Absolute Lymphs (auto) (1.0-4.8) 10^3/ul Absolute Monos (auto) (0-0.8) 10^3/ul Absolute Eos (auto) (0-0.6) 10^3/ul Absolute Basos (auto) (0-0.2) 10^3/ul Absolute Nucleated RBC 10^3/ul Nucleated RBC % INR (Anticoag Therapy) (0.77-1.02) APTT (26.0-36.3) seconds Sodium (133-145) mmol/L Potassium (3.5-5.0) mmol/L Chloride (101-111) mmol/L Carbon Dioxide (22-32) mmol/L Anion Gap (2-11) mmol/L BUN (6-24) mg/dL Creatinine (0.67-1.17) mg/dL Est GFR ( Amer) (>60) Est GFR (Non-Af Amer) (>60) BUN/Creatinine Ratio (8-20) Glucose (70-100) mg/dL Lactic Acid 0.4 L (0.5-2.0) mmol/L Calcium (8.6-10.3) mg/dL Magnesium (1.9-2.7) mg/dL Total Bilirubin (0.2-1.0) mg/dL AST (13-39) U/L ALT (7-52) U/L Alkaline Phosphatase (34-104) U/L Myoglobin (17.4-105.7) ng/mL Troponin I (<0.04) ng/mL Total Protein (6.4-8.9) g/dL Albumin (3.2-5.2) g/dL Globulin (2-4) g/dL Albumin/Globulin Ratio (1-3) TSH (0.34-5.60) mcIU/mL Urine Color Yellow Urine Appearance Clear Urine pH 6.0 (5-9) Ur Specific [place] 1.011 (1.010-1.030) Urine Protein 2+(100 mg/dl) H (Negative) Urine Ketones Negative (Negative) Urine Blood Negative (Negative) Urine Nitrate Negative (Negative) Urine Bilirubin Negative (Negative) Urine Urobilinogen Negative (Negative) Ur Leukocyte Esterase Negative (Negative) Urine WBC (Auto) Trace(0-5/hpf) (Absent) Urine RBC (Auto) Absent (Absent) Ur Squamous Epith Cells Present H (Absent) Urine Bacteria Absent (Absent) Hyaline Casts Present H (Absent) Urine Glucose Negative (Negative) Digoxin (0.8-2.0) ng/ml Blood Type O Positive Antibody Screen Positive Antibody Identification Anti-Fya Direct Antiglob Test Negative 09/11/17 09/11/17 Range/Units 12:11 12:11 WBC (3.5-10.8) 10^3/ul RBC (4.0-5.4) 10^6/ul Hgb (14.0-18.0) g/dl Hct (42-52) % MCV (80-94) fL MCH (27-31) pg MCHC (31-36) g/dl RDW (10.5-15) % Plt Count (150-450) 10^3/ul MPV (7.4-10.4) um3 Neut % (Auto) (38-83) % Lymph % (Auto) (25-47) % [place] % (Auto) (1-9) % Eos % (Auto) (0-6) % Baso % (Auto) (0-2) % Absolute Neuts (auto) (1.5-7.7) 10^3/ul Absolute Lymphs (auto) (1.0-4.8) 10^3/ul Absolute Monos (auto) (0-0.8) 10^3/ul Absolute Eos (auto) (0-0.6) 10^3/ul Absolute Basos (auto) (0-0.2) 10^3/ul Absolute Nucleated RBC 10^3/ul Nucleated RBC % INR (Anticoag Therapy) (0.77-1.02) APTT (26.0-36.3) seconds Sodium 134 (133-145) mmol/L Potassium 4.3 (3.5-5.0) mmol/L Chloride 103 (101-111) mmol/L Carbon Dioxide 27 (22-32) mmol/L Anion Gap 4 (2-11) mmol/L BUN 51 H (6-24) mg/dL Creatinine 3.06 H (0.67-1.17) mg/dL Est GFR ( Amer) 24.9 (>60) Est GFR (Non-Af Amer) 19.4 (>60) BUN/Creatinine Ratio 16.7 (8-20) Glucose 103 H (70-100) mg/dL Lactic Acid (0.5-2.0) mmol/L Calcium 8.7 (8.6-10.3) mg/dL Magnesium (1.9-2.7) mg/dL Total Bilirubin 0.40 (0.2-1.0) mg/dL AST 15 (13-39) U/L ALT 7 (7-52) U/L Alkaline Phosphatase 75 (34-104) U/L Myoglobin (17.4-105.7) ng/mL Troponin I 0.03 (<0.04) ng/mL Total Protein 6.0 L (6.4-8.9) g/dL Albumin 3.0 L (3.2-5.2) g/dL Globulin 3.0 (2-4) g/dL Albumin/Globulin Ratio 1.0 (1-3) TSH (0.34-5.60) mcIU/mL Urine Color Urine Appearance Urine pH (5-9) Ur Specific [place] (1.010-1.030) Urine Protein (Negative) Urine Ketones (Negative) Urine Blood (Negative) Urine Nitrate (Negative) Urine Bilirubin (Negative) Urine Urobilinogen (Negative) Ur Leukocyte Esterase (Negative) Urine WBC (Auto) (Absent) Urine RBC (Auto) (Absent) Ur Squamous Epith Cells (Absent) Urine Bacteria (Absent) Hyaline Casts (Absent) Urine Glucose (Negative) Digoxin 3.7 H* (0.8-2.0) ng/ml Blood Type Antibody Screen Antibody Identification Direct Antiglob Test Result Diagrams: 09/11/17 10:29 09/11/17 12:11 Lab Statement: Any lab studies that have been ordered have been reviewed, and results considered in the medical decision making process. - Radiology CXR Xray Interpretation: Positive (See Comments) - Pleural and parenchymal changes in the left lung which likely represent chronic scarring although an acute process cannot be excluded. ED physician has reviewed this report. Radiology Interpretation Completed By: Radiologist - CT CT Brain CT Interpretation: No Acute Changes - 1. No evidence for acute intracranial abnormality. 2. Atrophy and findings consistent with chronic small vessel ischemic changes. ED physician has reviewed this report. CT Interpretation Completed By: Radiologist - EKG 09:58 Cardiac Rate: NL EKG Rhythm: Sinus Bradycardia - 52 BPM EKG Interpretation: Prolonged [place] interval. Re-Evaluation - Re-Evaluation First Eval Re-Evaluation Time: 14:00 - I spoke with inpatient hospitalist for admission Change: Improved Altered Mental Statu Course/Dx - Course Course Of Treatment: digibind not indicated at this time per poison control, pt' s mental status improved but with waxing and waning. ct negative for acute pathology, labile BPs throughout stay. Admitted for further observation. - Diagnoses Discharge Diagnoses: Digoxin toxicity, Delirium - Provider Notifications Discussed Care Of Patient With: Poison Control Time Discussed With Above Provider: 11:40 - I discussed the patient's care with Poison Control. Discharge - Discharge Plan Condition: Stable Disposition: ADMITTED TO [facility] Referrals: Gama Torres MD [Primary Care Provider] - The documentation as recorded by the Kevin alva Natalie accurately reflects the service I personally performed and the decisions made by , Bon Castaneda MD.
[2017-09-11] MEDS: NS 0.9% 1000 ML* 1,000 ML IV SCH (18:38)
--- NOTE | 2017-09-11 21:29 | PN ---
Progress Note - Progress Note Date of Service: 09/11/17 Note: Patient admitted for digoxin toxicity, now having 2nd degree HB Mobitz 1 w/ brief asymptomatic bradycardia into the 30s. Case reviewed with poison control who advised (1) 2 vials digibind (2) close monitoring of electolytes, Q4H (3) DO NOT CHECK FURTHER DIGOXIN LEVELS THEY WILL BE FALSELY ELEVATED
[2017-09-11] MEDS ORDERED: DIGOXIN IMMUNE FAB IV ONE (22:00)
[2017-09-11] MEDS ORDERED: NS 0.9% IV ONE (22:00)
[2017-09-11 22:54] LABS: EGFR Non-African American 19.1 (>60)
--- NOTE | 2017-09-12 00:02 | HP ---
CC: Dr. Torres; Dr. Taylor from [facility]; Dr. Kaur HISTORY AND PHYSICAL: DATE OF ADMISSION: 09/11/17 PRIMARY CARE PROVIDER: Dr. Torres. CHIEF COMPLAINT: Generalized weakness. 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 Kaur, status post transaortic valve replacement in 2013, coronary artery disease, atrial fibrillation, was brought in by the EMS after his called the ambulance and complained that the patient has generalized weakness. The patient was very reluctant to come to the hospital and apparently police as well as ambulance staff was involved. When I approached the patient, he stated that there is nothing wrong with him and he wants to go home. The patient's stated that his short-term memory had been very impaired for the past several months. He has not walked for 4 months. He stated that in May 2017, he was able to drive but she has to transport him to his car by wheelchair and then once he sat down, he was able to drive her to her doctor's appointment. The patient has had frequent loose stools approximately 3 to 5 bowel movements a day. He has not complained of any pain. He stated that he stopped taking his Synthroid medications because "they did not help him anything." He had been losing weight and basically bedridden for 3 to 4 months. His has help from a nurse who comes in twice a day, but very limited help over the weekend. This weekend, the patient's could not handle taking care of the patient any more and she called 911. The patient is a very limited historian. Basically, he denies any problems. When I asked him why he cannot walk, he asked his why he cannot walk. He was noted to have sinus bradycardia with frequent PVCs and digoxin toxicity with digoxin level of 3.6. He has acute on chronic renal failure and worsening of his chronic anemia. He also is hypothyroid. He is going to be admitted for all of the above mentioned to telemetry monitoring bed. PAST MEDICAL HISTORY: 1. History of TIA. 2. History of hypertension. 3. Coronary artery disease status post stenting in 2013. 4. Status post transaortic valve replacement at [facility] in 2013 complicated by prolonged hospital stay. 5. History of osteoarthritis. 6. Back pain. 7. Depression. 8. BPH. 9. History of Graves disease and hypothyroidism. 10. Cataract surgery bilaterally. 11. History of perirectal mass diagnosed on pelvis CT in the fall of 2015 under the care of Dr. Kaur. The patient stated that he has not been seeing Dr. Kaur for the past several months and his stated that he refused to go see his doctors. 12. 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 13. History of chronic anemia under the care of Dr. Kaur in the past. 15. Chronic kidney disease, stage 3. MEDICATIONS: 1. Amlodipine 10 mg daily. 2. Celexa 20 mg daily. 3. Coreg 3.125 mg b.i.d. and 12.5 mg b.i.d. 4. Aspirin 81 mg daily. 5. Elavil 25 mg at bedtime. 6. Furosemide 20 mg daily. 7. Vitamin B12, 1000 mcg daily. 8. Digoxin 0.125 mg daily. 9. Plavix 75 mg daily. 10. Folic acid 1 mg daily. ALLERGIES: Include AGGRENOX and PACERONE. FAMILY HISTORY: Unable to obtain from this patient. SOCIAL HISTORY: The patient smoked for a total of 20 years and stopped in 1965. He denies any alcohol or drug use. He is a retired hotel groundskeeping maintenance worker. He lives with his , who is his surrogate. His 's name is Sonia. REVIEW OF SYSTEMS: Basically unobtainable from the patient. From this where I obtained from the patient's , please see history of present illness. The patient keeps on denying any problems and states that there is nothing wrong with him. PHYSICAL EXAMINATION GENERAL: The patient is an 89-year-old male who appears chronically ill, cachectic, very pale. He appears in no acute distress. He is oriented to self. He recognizes his and he is able to tell me that he is in the hospital in [place]. He does not know today's date. VITAL SIGNS: Blood pressure of 158/119, heart rate of 61 and regular with frequent PVCs on telemetry, oxygen saturation 100% on room air, temperature of 97.7. HEENT: Head: Atraumatic, normocephalic. Eyes: Pupils are equal, reactive to light and accommodation. Oropharynx clear. Mucosa dry. NECK: Supple. No JVD. No bruits bilaterally. RESPIRATORY: Clear to auscultation bilaterally. CARDIOVASCULAR: Regular rate and rhythm, bradycardia. ABDOMEN: Soft, nontender. Bowel sounds present in all 4 quadrants. EXTREMITIES: There is no edema. Pulses are +2 bilaterally. There is no clubbing or cyanosis. NEUROLOGIC: On neuro evaluation, generalized deconditioning and weakness, but otherwise motor strength is 5/5 bilaterally. There is no motor weakness. Speech is clear. SKIN: On evaluation of the skin, significant pallor noted. The patient also has multiple seborrheic dermatitis scattered throughout his trunk. PSYCHIATRIC: On psychiatric evaluation, the patient is oriented to self and location. Very poor short-term memory and very poor historian. LABORATORY DATA/DIAGNOSTIC STUDIES: Showed white blood cell count of 6.5, hemoglobin 6.9, hematocrit of 20, and platelets of 184. Sodium 134, potassium 4.3, chloride 103, carbon dioxide 27, BUN 51, creatinine 3.06. The patient's baseline creatinine appears to be at 2. Liver function tests unremarkable. Initial troponin of 0.04, repeat troponin 0.03. Urinalysis positive for hyaline casts and epithelial cells. Otherwise, unremarkable. Serum digoxin level was 3.7. Brain CT, impression: "No evidence of acute intracranial abnormality. Atrophy and findings consistent with chronic small vessel ischemic changes." Portable chest x-ray was read by the radiologist as "pleural and parenchymal changes in the left lung, which likely represent chronic scarring, although an acute process cannot be excluded." The patient's EKG showed sinus or ectopic atrial bradycardia, rapid regular rhythm with a heart rate of 52 beats per minute with diffuse ST depressions in V4 to V6, similar to prior. The bradycardia is new and there is also left anterior fascicular block, which is new. ASSESSMENT AND PLAN: 1. Digoxin toxicity. The patient currently is hemodynamically stable. His digoxin level is 3.6. He is going to be admitted to telemetry monitoring floor , his digoxin is going to be stopped. The patient is going to be placed on intravenous hydration. I suspect his digoxin toxicity is likely due to acute renal failure. 2. Acute renal failure. Appears to be due to dehydration. His Lasix is going to stopped and the patient is going to be placed on intravenous hydration. 3. The patient is hypothyroid because he refused taking Synthroid in the past. I will start his Synthroid at 50 mcg daily to begin with. 4. Normocytic anemia, also chronic and worsening of chronic. At this point, the patient was offered a transfusion and he refused. The patient's was informed that if the patient decides to have a transfusion, we should be notified. 5. The patient's troponin initially is 0.04, repeat troponin is 0.03. This is a combination of possibility of demand ischemia and as well as worsening creatinine clearance. 6. Possibility of rectal mass. Although the patient's stool was Hemoccult negative, the patient has a history of possible rectal mass and has significant anemia. At this point, the patient refused to have further evaluation in regards to that. 7. The patient's code status is do not resuscitate and that was signed by the patient in presence of his , who also witnessed. 8. In regards to DVT prophylaxis, the patient is going to be placed on sequential compression devices and pharmacological prophylaxis is contraindicated in this patient with severe anemia. 9. Please note that I suspect that after intravenous rehydration, the patient' s hemoglobin is going to decrease even more and he is going to be in more profound anemia. TIME SPENT: Approximately 65 minutes were spent on the admission of this patient; more than half of that time was spent [id number] with the patient during the interview and physical exam. [id number]/[facility] #: [id number] AMPARO
[2017-09-12] MEDS: Levothyroxine TAB* 50 MCG TAB PO SCH (05:43)
[2017-09-12] MEDS: Clopidogrel TAB* 75 MG PO SCH (08:57)
[2017-09-12] MEDS: Aspirin EC Low Dose* 81 MG TAB.EC PO SCH (08:57)
[2017-09-12] MEDS: Cyanocobalamin TAB* 500 MCG PO SCH (08:57)
[2017-09-12] MEDS: amLODIPine TAB* 5 MG PO SCH (08:57)
[2017-09-12] MEDS: Citalopram TAB* 20 MG PO SCH (08:57)
[2017-09-12] MEDS: Folic Acid TAB* 1 MG PO SCH (08:58)
[2017-09-12 09:10] LABS: Hematocrit 18 % (42-52); Hemoglobin 6.4 g/dl (14.0-18.0); Mean Corpuscular HGB Conc 35 g/dl (31-36); Mean Corpuscular Hemoglobin 32 pg (27-31); Mean Corpuscular Volume 93 fL (80-94); Mean Platelet Volume 9 um3 (7.4-10.4); Platelet Count 174 10^3/ul (150-450); Red Blood Count 1.99 10^6/ul (4.0-5.4); Red Cell Distribution Width 14 % (10.5-15); White Blood Count 6.3 10^3/ul (3.5-10.8)
[2017-09-12 09:24] LABS: EGFR Non-African American 20.6 (>60)
[2017-09-12 10:07] LABS: ABS Basophils 0 10^3/ul (0-0.2); ABS Eosinophils 0.3 10^3/ul (0-0.6); ABS Lymphocytes 0.9 10^3/ul (1.0-4.8); ABS Monocytes 0.7 10^3/ul (0-0.8); ABS Neutrophils 4.3 10^3/ul (1.5-7.7); ABS Nucleated RBC 0 10^3/ul; Eosinophil % 5.1 % (0-6); Lymphocyte % 14.6 % (25-47); Nucleated Red Blood Cells % 0
--- NOTE | 2017-09-12 10:49 | PN ---
Subjective Date of Service: 09/12/17 Interval History: Pt states he is feeling fine. His biggest complaint at this time is his lower dentures do not fit. He perseverates on the teeth not fitting. He denies any pain. He denies SOB. Objective Active Medications: Acetaminophen (Tylenol Tab*) 650 mg PO Q4H PRN PRN Reason: FEVER/PAIN Al Hydrox/Mg Hydrox/Simethicone (Maalox Plus*) 30 ml PO Q6H PRN PRN Reason: INDIGESTION Amitriptyline HCl (Elavil Tab*) 25 mg PO BEDTIME PRN PRN Reason: INSOMNIA Amlodipine Besylate (Norvasc Tab*) 10 mg PO QAM [facility] Last Admin: 09/12/17 08:57 Dose: 10 mg Aspirin (Aspirin Ec Low Dose*) 81 mg PO DAILY [facility] Last Admin: 09/12/17 08:57 Dose: 81 mg Citalopram [facility] ([facility] Tab*) [facility] Admin: 09/12/17 08:57 Dose: 20 mg Clopidogrel Bisulfate (Plavix Tab*) [facility] Last Admin: 09/12/17 08:57 Dose: 75 mg Cyanocobalamin (Vitamin B12 Tab*) 1,000 mcg PO DAILY [facility] Last Admin: 09/12/17 08:57 Dose: 1,000 mcg Folic Acid (Folvite Tab*) 1 mg PO DAILY [facility] Last Admin: 09/12/17 08:58 Dose: 1 mg Hydralazine HCl (Apresoline Iv*) 5 mg IV SLOW PU Q6H PRN PRN Reason: BLOOD PRESSURE Last Admin: 09/12/17 08:58 Dose: 5 mg Sodium Chloride (Ns 0.9% 1000 Ml*) 1,000 mls @ 100 mls/hr IV PER RATE [facility] Last Admin: 09/11/17 18:38 Dose: 100 mls/hr Levothyroxine Sodium (Synthroid Tab*) 50 mcg PO DAILY@0600 [facility] Last Admin: 09/12/17 05:43 Dose: 50 mcg Vital Signs - 8 hr 09/12/17 09/12/17 09/12/17 04:30 06:20 07:53 Temperature 98.2 F 98.4 F 98.2 F Pulse Rate 76 66 62 Respiratory 20 20 20 Rate Blood Pressure 173/42 167/35 170/31 (mmHg) O2 Sat by Pulse 98 98 99 Oximetry 09/12/17 09/12/17 08:00 08:10 Temperature Pulse Rate Respiratory 20 Rate Blood Pressure 210/42 (mmHg) O2 Sat by Pulse Oximetry Oxygen Devices in Use Now: None Appearance: Elderly cachectic male sitting up in bed, NAD Eyes: No Scleral Icterus Ears/Nose/Mouth/Throat: - - very dry oral mucosa Respiratory: Symmetrical Chest Expansion and Respiratory Effort, Clear to Auscultation - anteriorly Cardiovascular: NL Sounds; No Murmurs; No JVD, RRR, No Edema, - - very wrinkled LE Abdominal: NL Sounds; No Tenderness; No Distention Extremities: No Clubbing, Cyanosis Skin: No Rash or Ulcers, No Nodules or Sclerosis Neurological: - - confused Result Diagrams: 09/12/17 08:32 09/12/17 08:32 Additional Lab and Data: Lab Results 09/11/17 09/11/17 09/11/17 Range/Units 10:29 10:29 10:29 WBC 6.5 (3.5-10.8) 10^3/ul RBC 2.16 L (4.0-5.4) 10^6/ul Hgb 6.9 L (14.0-18.0) g/dl Hct 20 L (42-52) % MCV 92 (80-94) fL MCH 32 H (27-31) pg MCHC 35 (31-36) g/dl RDW 13 (10.5-15) % Plt Count 184 (150-450) 10^3/ul MPV 8 (7.4-10.4) um3 Neut % (Auto) 64.6 (38-83) % Lymph % (Auto) 15.3 L (25-47) % [place] % (Auto) 9.7 H (1-9) % Eos % (Auto) 9.9 H (0-6) % Baso % (Auto) 0.5 (0-2) % Absolute Neuts (auto) 4.2 (1.5-7.7) 10^3/ul Absolute Lymphs (auto) 1.0 (1.0-4.8) 10^3/ul Absolute Monos (auto) 0.6 (0-0.8) 10^3/ul Absolute Eos (auto) 0.6 (0-0.6) 10^3/ul Absolute Basos (auto) 0 (0-0.2) 10^3/ul Absolute Nucleated RBC 0 10^3/ul Nucleated RBC % 0 INR (Anticoag Therapy) 0.93 (0.77-1.02) APTT 39.2 H (26.0-36.3) seconds Sodium 133 (133-145) mmol/L Potassium 4.4 (3.5-5.0) mmol/L Chloride 101 (101-111) mmol/L Carbon Dioxide 27 (22-32) mmol/L Anion Gap 5 (2-11) mmol/L BUN 53 H (6-24) mg/dL Creatinine 3.16 H (0.67-1.17) mg/dL Est GFR ( Amer) 24.0 (>60) Est GFR (Non-Af Amer) 18.6 (>60) BUN/Creatinine Ratio 16.8 (8-20) Glucose 108 H (70-100) mg/dL Lactic Acid (0.5-2.0) mmol/L Calcium 8.8 (8.6-10.3) mg/dL Magnesium 2.2 (1.9-2.7) mg/dL Total Bilirubin 0.40 (0.2-1.0) mg/dL AST 15 (13-39) U/L ALT 8 (7-52) U/L Alkaline Phosphatase 75 (34-104) U/L Myoglobin 80.3 (17.4-105.7) ng/mL Troponin I 0.04 H* (<0.04) ng/mL Total Protein 6.2 L (6.4-8.9) g/dL Albumin 3.1 L (3.2-5.2) g/dL Globulin 3.1 (2-4) g/dL Albumin/Globulin Ratio 1.0 (1-3) TSH 82.26 H (0.34-5.60) mcIU/mL Urine Color Urine Appearance Urine pH (5-9) Ur Specific [place] (1.010-1.030) Urine Protein (Negative) Urine Ketones (Negative) Urine Blood (Negative) Urine Nitrate (Negative) Urine Bilirubin (Negative) Urine Urobilinogen (Negative) Ur Leukocyte Esterase (Negative) Urine WBC (Auto) (Absent) Urine RBC (Auto) (Absent) Ur Squamous Epith Cells (Absent) Urine Bacteria (Absent) Hyaline Casts (Absent) Urine Glucose (Negative) Digoxin 3.8 H* (0.8-2.0) ng/ml Blood Type Antibody Screen Antibody Identification Direct Antiglob Test 09/11/17 09/11/17 09/11/17 Range/Units 10:29 10:29 11:40 WBC (3.5-10.8) 10^3/ul RBC (4.0-5.4) 10^6/ul Hgb (14.0-18.0) g/dl Hct (42-52) % MCV (80-94) fL MCH (27-31) pg MCHC (31-36) g/dl RDW (10.5-15) % Plt Count (150-450) 10^3/ul MPV (7.4-10.4) um3 Neut % (Auto) (38-83) % Lymph % (Auto) (25-47) % [place] % (Auto) (1-9) % Eos % (Auto) (0-6) % Baso % (Auto) (0-2) % Absolute Neuts (auto) (1.5-7.7) 10^3/ul Absolute Lymphs (auto) (1.0-4.8) 10^3/ul Absolute Monos (auto) (0-0.8) 10^3/ul Absolute Eos (auto) (0-0.6) 10^3/ul Absolute Basos (auto) (0-0.2) 10^3/ul Absolute Nucleated RBC 10^3/ul Nucleated RBC % INR (Anticoag Therapy) (0.77-1.02) APTT (26.0-36.3) seconds Sodium (133-145) mmol/L Potassium (3.5-5.0) mmol/L Chloride (101-111) mmol/L Carbon Dioxide (22-32) mmol/L Anion Gap (2-11) mmol/L BUN (6-24) mg/dL Creatinine (0.67-1.17) mg/dL Est GFR ( Amer) (>60) Est GFR (Non-Af Amer) (>60) BUN/Creatinine Ratio (8-20) Glucose (70-100) mg/dL Lactic Acid 0.4 L (0.5-2.0) mmol/L Calcium (8.6-10.3) mg/dL Magnesium (1.9-2.7) mg/dL Total Bilirubin (0.2-1.0) mg/dL AST (13-39) U/L ALT (7-52) U/L Alkaline Phosphatase (34-104) U/L Myoglobin (17.4-105.7) ng/mL Troponin I (<0.04) ng/mL Total Protein (6.4-8.9) g/dL Albumin (3.2-5.2) g/dL Globulin (2-4) g/dL Albumin/Globulin Ratio (1-3) TSH (0.34-5.60) mcIU/mL Urine Color Yellow Urine Appearance Clear Urine pH 6.0 (5-9) Ur Specific [place] 1.011 (1.010-1.030) Urine Protein 2+(100 mg/dl) H (Negative) Urine Ketones Negative (Negative) Urine Blood Negative (Negative) Urine Nitrate Negative (Negative) Urine Bilirubin Negative (Negative) Urine Urobilinogen Negative (Negative) Ur Leukocyte Esterase Negative (Negative) Urine WBC (Auto) Trace(0-5/hpf) (Absent) Urine RBC (Auto) Absent (Absent) Ur Squamous Epith Cells Present H (Absent) Urine Bacteria Absent (Absent) Hyaline Casts Present H (Absent) Urine Glucose Negative (Negative) Digoxin (0.8-2.0) ng/ml Blood Type O Positive Antibody Screen Positive Antibody Identification Anti-Fya Direct Antiglob Test Negative 09/11/17 09/11/17 Range/Units 12:11 12:11 WBC (3.5-10.8) 10^3/ul RBC (4.0-5.4) 10^6/ul Hgb (14.0-18.0) g/dl Hct (42-52) % MCV (80-94) fL MCH (27-31) pg MCHC (31-36) g/dl RDW (10.5-15) % Plt Count (150-450) 10^3/ul MPV (7.4-10.4) um3 Neut % (Auto) (38-83) % Lymph % (Auto) (25-47) % [place] % (Auto) (1-9) % Eos % (Auto) (0-6) % Baso % (Auto) (0-2) % Absolute Neuts (auto) (1.5-7.7) 10^3/ul Absolute Lymphs (auto) (1.0-4.8) 10^3/ul Absolute Monos (auto) (0-0.8) 10^3/ul Absolute Eos (auto) (0-0.6) 10^3/ul Absolute Basos (auto) (0-0.2) 10^3/ul Absolute Nucleated RBC 10^3/ul Nucleated RBC % INR (Anticoag Therapy) (0.77-1.02) APTT (26.0-36.3) seconds Sodium 134 (133-145) mmol/L Potassium 4.3 (3.5-5.0) mmol/L Chloride 103 (101-111) mmol/L Carbon Dioxide 27 (22-32) mmol/L Anion Gap 4 (2-11) mmol/L BUN 51 H (6-24) mg/dL Creatinine 3.06 H (0.67-1.17) mg/dL Est GFR ( Amer) 24.9 (>60) Est GFR (Non-Af Amer) 19.4 (>60) BUN/Creatinine Ratio 16.7 (8-20) Glucose 103 H (70-100) mg/dL Lactic Acid (0.5-2.0) mmol/L Calcium 8.7 (8.6-10.3) mg/dL Magnesium (1.9-2.7) mg/dL Total Bilirubin 0.40 (0.2-1.0) mg/dL AST 15 (13-39) U/L ALT 7 (7-52) U/L Alkaline Phosphatase 75 (34-104) U/L Myoglobin (17.4-105.7) ng/mL Troponin I 0.03 (<0.04) ng/mL Total Protein 6.0 L (6.4-8.9) g/dL Albumin 3.0 L (3.2-5.2) g/dL Globulin 3.0 (2-4) g/dL Albumin/Globulin Ratio 1.0 (1-3) TSH (0.34-5.60) mcIU/mL Urine Color Urine Appearance Urine pH (5-9) Ur Specific [place] (1.010-1.030) Urine Protein (Negative) Urine Ketones (Negative) Urine Blood (Negative) Urine Nitrate (Negative) Urine Bilirubin (Negative) Urine Urobilinogen (Negative) Ur Leukocyte Esterase (Negative) Urine WBC (Auto) (Absent) Urine RBC (Auto) (Absent) Ur Squamous Epith Cells (Absent) Urine Bacteria (Absent) Hyaline Casts (Absent) Urine Glucose (Negative) Digoxin 3.7 H* (0.8-2.0) ng/ml Blood Type Antibody Screen Antibody Identification Direct Antiglob Test Assess/Plan/Problems-Billing Mr Alexander is an 89 yo M who has a h/o CAD, s/p TAVR, hypothyroidism, HTN, CKD stage III and chronic anemia for which he does not want to pursue workup presented to the ER wtih c/o altered mental status and was found to be in acute on chronic renal failure and digoxin toxicity. - Patient Problems (1) Digoxin toxicity Current Visit: Yes Status: Acute Code(s): T46.0X1A - POISONING BY CARDI- STIM GLYCOS/DRUG SIMLAR ACT, ACC, INIT SNOMED Code(s): 91508170 Comment: The patient received digibind last night as he went into [place] last evening and he was bradycardic. No further digoxin levels to be checked as the digibind will falsely elevate the level. (2) Acute on chronic renal failure Current Visit: Yes Status: Acute Code(s): N17.9 - ACUTE KIDNEY FAILURE, UNSPECIFIED; N18.9 - CHRONIC KIDNEY DISEASE, UNSPECIFIED SNOMED Code(s): 415376576 Comment: The patient's creatinine on admission is up from his baseline. He reportedly was not eating/drinking well. He continues to receive IVF hydration. (3) Anemia Current Visit: Yes Status: Acute Code(s): D64.9 - ANEMIA, UNSPECIFIED SNOMED Code(s): 660852133 Comment: Chronic but worse today after hydration. Transfuse 1 unit PRBC today. Pt does not want to work this up. (4) HTN (hypertension) Current Visit: Yes Status: Acute Code(s): I10 - ESSENTIAL (PRIMARY) HYPERTENSION SNOMED Code(s): 56947314 Comment: BP is markedly elevated. Will continue amlodipine 10mg daily and add hydralazine 10mg TID (no BBlocker secondary to low normal HR and no JOVANNY/ARB due to elevated creatinine). (5) CAD (coronary artery disease) Current Visit: Yes Status: Acute Code(s): I25.10 - ATHSCL HEART DISEASE OF [place] CORONARY ARTERY W/O ANG PCTRS SNOMED Code(s): 19476893 Comment: No issues at this time. Pt does not want any aggressive treatment. Continue aspirin. (6) DVT prophylaxis Current Visit: Yes Status: Acute Code(s): TZZ2451 - SNOMED Code(s): 374651475 Comment: SCDs alone secondary to marked anemia (7) DNR (do not resuscitate) Current Visit: Yes Status: Acute Status and Disposition: Pt does not want to be in the hospital and wants to go home and never come back to the hospital again but pt refuses hospice. Will have case management speak with the patient and his to discuss options.
[2017-09-12] MEDS: hydrALAZINE TAB* 10 MG PO SCH ×2 (14:43→20:36)
[2017-09-12] MEDS: NS 0.9% 1000 ML* 1,000 ML IV SCH (15:57)
[2017-09-13] MEDS: NS 0.9% 1000 ML* 1,000 ML IV SCH (00:34)
[2017-09-13] MEDS: Levothyroxine TAB* 50 MCG TAB PO SCH (05:21)
[2017-09-13] MEDS: Cyanocobalamin TAB* 500 MCG PO SCH (08:39)
[2017-09-13] MEDS: amLODIPine TAB* 5 MG PO SCH (08:40)
[2017-09-13] MEDS: Folic Acid TAB* 1 MG PO SCH (08:40)
[2017-09-13] MEDS: Aspirin EC Low Dose* 81 MG TAB.EC PO SCH (08:40)
[2017-09-13] MEDS: Clopidogrel TAB* 75 MG PO SCH (08:40)
[2017-09-13] MEDS: Citalopram TAB* 20 MG PO SCH (08:40)
[2017-09-13] MEDS: hydrALAZINE TAB* 10 MG PO SCH ×3 (08:40→19:39)
[2017-09-13] MEDS: hydrALAZINE IV* 20 MG/ML VIAL IV SLOW PU PRN (12:11)
[2017-09-13 15:28] LABS: Hematocrit 24 % (42-52); Hemoglobin 8.3 g/dl (14.0-18.0); Mean Corpuscular HGB Conc 35 g/dl (31-36); Mean Corpuscular Hemoglobin 32 pg (27-31); Mean Corpuscular Volume 92 fL (80-94); Mean Platelet Volume 8 um3 (7.4-10.4); Platelet Count 199 10^3/ul (150-450); Red Blood Count 2.62 10^6/ul (4.0-5.4); Red Cell Distribution Width 14 % (10.5-15); White Blood Count 8.2 10^3/ul (3.5-10.8)
[2017-09-13 15:46] LABS: EGFR Non-African American 23.7 (>60)
--- NOTE | 2017-09-13 15:48 | PN ---
Subjective Date of Service: 09/13/17 Interval History: Pt states he is feeling well. He states he did not realize how thin he had gotten and how confused he was. He still does not want to consider hospice despite his wishes to stay home. Objective Active Medications: Acetaminophen (Tylenol Tab*) 650 mg PO Q4H PRN PRN Reason: FEVER/PAIN Al Hydrox/Mg Hydrox/Simethicone (Maalox Plus*) 30 ml PO Q6H PRN PRN Reason: INDIGESTION Amitriptyline HCl (Elavil Tab*) 25 mg PO BEDTIME PRN PRN Reason: INSOMNIA Amlodipine Besylate (Norvasc Tab*) 10 mg PO QAM [facility] Last Admin: 09/13/17 08:40 Dose: 10 mg Aspirin (Aspirin Ec Low Dose*) 81 mg PO DAILY [facility] Last Admin: 09/13/17 08:40 Dose: 81 mg Citalopram [facility]bromide ([facility]a [facility]*) [facility] Last Admin: 09/13/17 08:40 Dose: 20 mg Clopidogrel Bisulfate (Plavix Tab*) [facility] [place] Last Admin: 09/13/17 08:40 Dose: 75 mg Cyanocobalamin (Vitamin B12 Tab*) 1,000 mcg PO DAILY [facility] Last Admin: 09/13/17 08:39 Dose: 1,000 mcg Folic Acid (Folvite Tab*) 1 mg PO DAILY [facility] Last Admin: 09/13/17 08:40 Dose: 1 mg Hydralazine HCl (Apresoline Iv*) 5 mg IV SLOW PU Q6H PRN PRN Reason: SBP>170 Last Admin: 09/13/17 12:11 Dose: 5 mg Hydralazine HCl (Apresoline Tab*) 20 mg PO TID [facility] Sodium Chloride (Ns 0.9% 1000 Ml*) 1,000 mls @ 100 mls/hr IV PER RATE [facility] Last Admin: 09/13/17 00:34 Dose: 100 mls/hr Levothyroxine Sodium (Synthroid Tab*) 50 mcg PO DAILY@0600 [facility] Last Admin: 09/13/17 05:21 Dose: 50 mcg Vital Signs - 8 hr 09/13/17 09/13/17 09/13/17 08:00 08:16 08:17 Temperature 98.3 F Pulse Rate 65 Respiratory 16 16 Rate Blood Pressure 220/52 (mmHg) O2 Sat by Pulse 93 Oximetry 09/13/17 09/13/17 09/13/17 09:22 11:17 11:21 Temperature 98.4 F Pulse Rate 63 Respiratory 16 Rate Blood Pressure 184/50 212/46 (mmHg) O2 Sat by Pulse 99 Oximetry 09/13/17 09/13/17 11:26 15:26 Temperature 98.2 F Pulse Rate 67 Respiratory 22 Rate Blood Pressure 190/48 169/38 (mmHg) O2 Sat by Pulse 97 Oximetry Oxygen Devices in Use Now: None Appearance: Elderly male sitting up in bed, NAD Eyes: No Scleral Icterus Ears/Nose/Mouth/Throat: Mucous Membranes Moist Respiratory: Symmetrical Chest Expansion and Respiratory Effort, Clear to Auscultation Cardiovascular: NL Sounds; No Murmurs; No JVD, RRR, No Edema Abdominal: NL Sounds; No Tenderness; No Distention Extremities: No Clubbing, Cyanosis Skin: No Nodules or Sclerosis Neurological: - - improved orientation and appropriateness of answers Result Diagrams: 09/13/17 15:15 09/13/17 15:15 Additional Lab and Data: Lab Results 09/11/17 09/11/17 09/11/17 Range/Units 10:29 10:29 10:29 WBC 6.5 (3.5-10.8) 10^3/ul RBC 2.16 L (4.0-5.4) 10^6/ul Hgb 6.9 L (14.0-18.0) g/dl Hct 20 L (42-52) % MCV 92 (80-94) fL MCH 32 H (27-31) pg MCHC 35 (31-36) g/dl RDW 13 (10.5-15) % Plt Count 184 (150-450) 10^3/ul MPV 8 (7.4-10.4) um3 Neut % (Auto) 64.6 (38-83) % Lymph % (Auto) 15.3 L (25-47) % [place] % (Auto) 9.7 H (1-9) % Eos % (Auto) 9.9 H (0-6) % Baso % (Auto) 0.5 (0-2) % Absolute Neuts (auto) 4.2 (1.5-7.7) 10^3/ul Absolute Lymphs (auto) 1.0 (1.0-4.8) 10^3/ul Absolute Monos (auto) 0.6 (0-0.8) 10^3/ul Absolute Eos (auto) 0.6 (0-0.6) 10^3/ul Absolute Basos (auto) 0 (0-0.2) 10^3/ul Absolute Nucleated RBC 0 10^3/ul Nucleated RBC % 0 INR (Anticoag Therapy) 0.93 (0.77-1.02) APTT 39.2 H (26.0-36.3) seconds Sodium 133 (133-145) mmol/L Potassium 4.4 (3.5-5.0) mmol/L Chloride 101 (101-111) mmol/L Carbon Dioxide 27 (22-32) mmol/L Anion Gap 5 (2-11) mmol/L BUN 53 H (6-24) mg/dL Creatinine 3.16 H (0.67-1.17) mg/dL Est GFR ( Amer) 24.0 (>60) Est GFR (Non-Af Amer) 18.6 (>60) BUN/Creatinine Ratio 16.8 (8-20) Glucose 108 H (70-100) mg/dL Lactic Acid (0.5-2.0) mmol/L Calcium 8.8 (8.6-10.3) mg/dL Magnesium 2.2 (1.9-2.7) mg/dL Total Bilirubin 0.40 (0.2-1.0) mg/dL AST 15 (13-39) U/L ALT 8 (7-52) U/L Alkaline Phosphatase 75 (34-104) U/L Myoglobin 80.3 (17.4-105.7) ng/mL Troponin I 0.04 H* (<0.04) ng/mL Total Protein 6.2 L (6.4-8.9) g/dL Albumin 3.1 L (3.2-5.2) g/dL Globulin 3.1 (2-4) g/dL Albumin/Globulin Ratio 1.0 (1-3) TSH 82.26 H (0.34-5.60) mcIU/mL Urine Color Urine Appearance Urine pH (5-9) Ur Specific [place] (1.010-1.030) Urine Protein (Negative) Urine Ketones (Negative) Urine Blood (Negative) Urine Nitrate (Negative) Urine Bilirubin (Negative) Urine Urobilinogen (Negative) Ur Leukocyte Esterase (Negative) Urine WBC (Auto) (Absent) Urine RBC (Auto) (Absent) Ur Squamous Epith Cells (Absent) Urine Bacteria (Absent) Hyaline Casts (Absent) Urine Glucose (Negative) Digoxin 3.8 H* (0.8-2.0) ng/ml Blood Type Antibody Screen Antibody Identification Direct Antiglob Test 09/11/17 09/11/17 09/11/17 Range/Units 10:29 10:29 11:40 WBC (3.5-10.8) 10^3/ul RBC (4.0-5.4) 10^6/ul Hgb (14.0-18.0) g/dl Hct (42-52) % MCV (80-94) fL MCH (27-31) pg MCHC (31-36) g/dl RDW (10.5-15) % Plt Count (150-450) 10^3/ul MPV (7.4-10.4) um3 Neut % (Auto) (38-83) % Lymph % (Auto) (25-47) % [place] % (Auto) (1-9) % Eos % (Auto) (0-6) % Baso % (Auto) (0-2) % Absolute Neuts (auto) (1.5-7.7) 10^3/ul Absolute Lymphs (auto) (1.0-4.8) 10^3/ul Absolute Monos (auto) (0-0.8) 10^3/ul Absolute Eos (auto) (0-0.6) 10^3/ul Absolute Basos (auto) (0-0.2) 10^3/ul Absolute Nucleated RBC 10^3/ul Nucleated RBC % INR (Anticoag Therapy) (0.77-1.02) APTT (26.0-36.3) seconds Sodium (133-145) mmol/L Potassium (3.5-5.0) mmol/L Chloride (101-111) mmol/L Carbon Dioxide (22-32) mmol/L Anion Gap (2-11) mmol/L BUN (6-24) mg/dL Creatinine (0.67-1.17) mg/dL Est GFR ( Amer) (>60) Est GFR (Non-Af Amer) (>60) BUN/Creatinine Ratio (8-20) Glucose (70-100) mg/dL Lactic Acid 0.4 L (0.5-2.0) mmol/L Calcium (8.6-10.3) mg/dL Magnesium (1.9-2.7) mg/dL Total Bilirubin (0.2-1.0) mg/dL AST (13-39) U/L ALT (7-52) U/L Alkaline Phosphatase (34-104) U/L Myoglobin (17.4-105.7) ng/mL Troponin I (<0.04) ng/mL Total Protein (6.4-8.9) g/dL Albumin (3.2-5.2) g/dL Globulin (2-4) g/dL Albumin/Globulin Ratio (1-3) TSH (0.34-5.60) mcIU/mL Urine Color Yellow Urine Appearance Clear Urine pH 6.0 (5-9) Ur Specific [place] 1.011 (1.010-1.030) Urine Protein 2+(100 mg/dl) H (Negative) Urine Ketones Negative (Negative) Urine Blood Negative (Negative) Urine Nitrate Negative (Negative) Urine Bilirubin Negative (Negative) Urine Urobilinogen Negative (Negative) Ur Leukocyte Esterase Negative (Negative) Urine WBC (Auto) Trace(0-5/hpf) (Absent) Urine RBC (Auto) Absent (Absent) Ur Squamous Epith Cells Present H (Absent) Urine Bacteria Absent (Absent) Hyaline Casts Present H (Absent) Urine Glucose Negative (Negative) Digoxin (0.8-2.0) ng/ml Blood Type O Positive Antibody Screen Positive Antibody Identification Anti-Fya Direct Antiglob Test Negative 09/11/17 09/11/17 Range/Units 12:11 12:11 WBC (3.5-10.8) 10^3/ul RBC (4.0-5.4) 10^6/ul Hgb (14.0-18.0) g/dl Hct (42-52) % MCV (80-94) fL MCH (27-31) pg MCHC (31-36) g/dl RDW (10.5-15) % Plt Count (150-450) 10^3/ul MPV (7.4-10.4) um3 Neut % (Auto) (38-83) % Lymph % (Auto) (25-47) % [place] % (Auto) (1-9) % Eos % (Auto) (0-6) % Baso % (Auto) (0-2) % Absolute Neuts (auto) (1.5-7.7) 10^3/ul Absolute Lymphs (auto) (1.0-4.8) 10^3/ul Absolute Monos (auto) (0-0.8) 10^3/ul Absolute Eos (auto) (0-0.6) 10^3/ul Absolute Basos (auto) (0-0.2) 10^3/ul Absolute Nucleated RBC 10^3/ul Nucleated RBC % INR (Anticoag Therapy) (0.77-1.02) APTT (26.0-36.3) seconds Sodium 134 (133-145) mmol/L Potassium 4.3 (3.5-5.0) mmol/L Chloride 103 (101-111) mmol/L Carbon Dioxide 27 (22-32) mmol/L Anion Gap 4 (2-11) mmol/L BUN 51 H (6-24) mg/dL Creatinine 3.06 H (0.67-1.17) mg/dL Est GFR ( Amer) 24.9 (>60) Est GFR (Non-Af Amer) 19.4 (>60) BUN/Creatinine Ratio 16.7 (8-20) Glucose 103 H (70-100) mg/dL Lactic Acid (0.5-2.0) mmol/L Calcium 8.7 (8.6-10.3) mg/dL Magnesium (1.9-2.7) mg/dL Total Bilirubin 0.40 (0.2-1.0) mg/dL AST 15 (13-39) U/L ALT 7 (7-52) U/L Alkaline Phosphatase 75 (34-104) U/L Myoglobin (17.4-105.7) ng/mL Troponin I 0.03 (<0.04) ng/mL Total Protein 6.0 L (6.4-8.9) g/dL Albumin 3.0 L (3.2-5.2) g/dL Globulin 3.0 (2-4) g/dL Albumin/Globulin Ratio 1.0 (1-3) TSH (0.34-5.60) mcIU/mL Urine Color Urine Appearance Urine pH (5-9) Ur Specific [place] (1.010-1.030) Urine Protein (Negative) Urine Ketones (Negative) Urine Blood (Negative) Urine Nitrate (Negative) Urine Bilirubin (Negative) Urine Urobilinogen (Negative) Ur Leukocyte Esterase (Negative) Urine WBC (Auto) (Absent) Urine RBC (Auto) (Absent) Ur Squamous Epith Cells (Absent) Urine Bacteria (Absent) Hyaline Casts (Absent) Urine Glucose (Negative) Digoxin 3.7 H* (0.8-2.0) ng/ml Blood Type Antibody Screen Antibody Identification Direct Antiglob Test Assess/Plan/Problems-Billing Mr Alexander is an 89 yo M who has a h/o CAD, s/p TAVR, hypothyroidism, HTN, CKD stage III and chronic anemia for which he does not want to pursue workup presented to the ER wtih c/o altered mental status and was found to be in acute on chronic renal failure and digoxin toxicity. - Patient Problems (1) Digoxin toxicity Current Visit: Yes Status: Acute Code(s): T46.0X1A - POISONING BY CARDI- STIM GLYCOS/DRUG SIMLAR ACT, ACC, INIT SNOMED Code(s): 04964988 Comment: The patient received digibind. Hold digoxin indefinitely. (2) Acute on chronic renal failure Current Visit: Yes Status: Acute Code(s): N17.9 - ACUTE KIDNEY FAILURE, UNSPECIFIED; N18.9 - CHRONIC KIDNEY DISEASE, UNSPECIFIED SNOMED Code(s): 199077894 Comment: Creatinine is improved with hydration. He is still not eating much. He declines to talk with Dr. Jaime from hospice. He wants to go home and his understands that he will need total care and if he becomes too difficult for her to care for she will need to bring him back to the ER. (3) Anemia Current Visit: Yes Status: Acute Code(s): D64.9 - ANEMIA, UNSPECIFIED SNOMED Code(s): 731184976 Comment: Improved after 1 unit PRBC transfusion. (4) HTN (hypertension) Current Visit: Yes Status: Acute Code(s): I10 - ESSENTIAL (PRIMARY) HYPERTENSION SNOMED Code(s): 49300695 Comment: BP remains markedly elevated, increase hydralazine to 20mg TID and continue amlodipine 10mg daily. (5) CAD (coronary artery disease) Current Visit: Yes Status: Acute Code(s): I25.10 - ATHSCL HEART DISEASE OF [place] CORONARY ARTERY W/O ANG PCTRS SNOMED Code(s): 57888849 Comment: No issues at this time. Pt does not want any aggressive treatment. Continue aspirin. (6) DVT prophylaxis Current Visit: Yes Status: Acute Code(s): NVY4912 - SNOMED Code(s): 769591926 Comment: SCDs alone secondary to marked anemia (7) DNR (do not resuscitate) Current Visit: Yes Status: Acute Status and Disposition: Pt does not want to be in the hospital and wants to go home and never come back to the hospital again but pt refuses hospice. Will have case management speak with the patient and his to discuss options.
[2017-09-14] MEDS: hydrALAZINE IV* 20 MG/ML VIAL IV SLOW PU PRN ×2 (00:33→06:21)
[2017-09-14] MEDS: Levothyroxine TAB* 50 MCG TAB PO SCH (05:06)
[2017-09-14] MEDS: Citalopram TAB* 20 MG PO SCH (08:28)
[2017-09-14] MEDS: Clopidogrel TAB* 75 MG PO SCH (08:28)
[2017-09-14] MEDS: Folic Acid TAB* 1 MG PO SCH (08:28)
[2017-09-14] MEDS: hydrALAZINE TAB* 10 MG PO SCH ×2 (08:28→13:34)
[2017-09-14] MEDS: Cyanocobalamin TAB* 500 MCG PO SCH (08:28)
[2017-09-14] MEDS: Aspirin EC Low Dose* 81 MG TAB.EC PO SCH (08:28)
[2017-09-14] MEDS: amLODIPine TAB* 5 MG PO SCH (08:28)
[2017-09-14 12:11] VITALS: BP 168/40
--- NOTE | 2017-09-14 14:41 | PN ---
Subjective Date of Service: 09/14/17 Interval History: Pt is feeling well. He is ready to go home. He does not want any more treatment or evaluations yet he does not want hospice. His however took the hospice pamphlet and believes at some point she may need their help. Objective Active Medications: Acetaminophen (Tylenol Tab*) 650 mg PO Q4H PRN PRN Reason: FEVER/PAIN Al Hydrox/Mg Hydrox/Simethicone (Maalox Plus*) 30 ml PO Q6H PRN PRN Reason: INDIGESTION Amitriptyline HCl (Elavil Tab*) 25 mg PO BEDTIME PRN PRN Reason: INSOMNIA Amlodipine Besylate (Norvasc Tab*) 10 mg PO QAM [facility] Last Admin: 09/14/17 08:28 Dose: 10 mg Aspirin (Aspirin Ec Low Dose*) 81 mg PO DAILY [facility] Last Admin: 09/14/17 08:28 Dose: 81 mg Citalopram Hydrobromide (Celexa Tab*) 20 mg PO QAM [facility] Last Admin: 09/14/17 08:28 Dose: 20 mg Clopidogrel Bisulfate (Plavix Tab*) 75 mg PO QAM [facility] Last Admin: 09/14/17 08:28 Dose: 75 mg Cyanocobalamin (Vitamin B12 Tab*) 1,000 mcg PO DAILY [facility] Last Admin: 09/14/17 08:28 Dose: 1,000 mcg Folic Acid (Folvite Tab*) 1 mg PO DAILY [facility] Last Admin: 09/14/17 08:28 Dose: 1 mg Hydralazine HCl (Apresoline Iv*) 5 mg IV SLOW PU Q6H PRN PRN Reason: SBP>170 Last Admin: 09/14/17 06:21 Dose: 5 mg Hydralazine HCl (Apresoline Tab*) 20 mg PO TID [facility] Last Admin: 09/14/17 13:34 Dose: 20 mg Sodium Chloride (Ns 0.9% 1000 Ml*) 1,000 mls @ 100 mls/hr IV PER RATE [facility] Last Admin: 09/13/17 00:34 Dose: 100 mls/hr Levothyroxine Sodium (Synthroid Tab*) 50 mcg PO DAILY@0600 [facility] Last Admin: 09/14/17 05:06 Dose: 50 mcg Vital Signs - 8 hr 09/14/17 09/14/17 09/14/17 07:34 07:40 08:00 Temperature 98.3 F Pulse Rate 70 Respiratory 18 18 Rate Blood Pressure 174/56 (mmHg) O2 Sat by Pulse 98 Oximetry 09/14/17 09/14/17 12:04 12:11 Temperature 98.5 F Pulse Rate 66 Respiratory 20 Rate Blood Pressure 168/40 (mmHg) O2 Sat by Pulse 100 Oximetry Oxygen Devices in Use Now: None Appearance: Elderly cachectic male sitting up in a chair, NAD Eyes: No Scleral Icterus Ears/Nose/Mouth/Throat: Mucous Membranes Moist Respiratory: Symmetrical Chest Expansion and Respiratory Effort, Clear to Auscultation Cardiovascular: NL Sounds; No Murmurs; No JVD, RRR, No Edema Abdominal: NL Sounds; No Tenderness; No Distention Extremities: No Clubbing, Cyanosis Skin: No Rash or Ulcers, No Nodules or Sclerosis Neurological: Alert and Oriented x 3 Result Diagrams: 09/13/17 15:15 09/13/17 15:15 Additional Lab and Data: Lab Results 09/11/17 09/11/17 09/11/17 Range/Units 10:29 10:29 10:29 WBC 6.5 (3.5-10.8) 10^3/ul RBC 2.16 L (4.0-5.4) 10^6/ul Hgb 6.9 L (14.0-18.0) g/dl Hct 20 L (42-52) % MCV 92 (80-94) fL MCH 32 H (27-31) pg MCHC 35 (31-36) g/dl RDW 13 (10.5-15) % Plt Count 184 (150-450) 10^3/ul MPV 8 (7.4-10.4) um3 Neut % (Auto) 64.6 (38-83) % Lymph % (Auto) 15.3 L (25-47) % [place] % (Auto) 9.7 H (1-9) % Eos % (Auto) 9.9 H (0-6) % Baso % (Auto) 0.5 (0-2) % Absolute Neuts (auto) 4.2 (1.5-7.7) 10^3/ul Absolute Lymphs (auto) 1.0 (1.0-4.8) 10^3/ul Absolute Monos (auto) 0.6 (0-0.8) 10^3/ul Absolute Eos (auto) 0.6 (0-0.6) 10^3/ul Absolute Basos (auto) 0 (0-0.2) 10^3/ul Absolute Nucleated RBC 0 10^3/ul Nucleated RBC % 0 INR (Anticoag Therapy) 0.93 (0.77-1.02) APTT 39.2 H (26.0-36.3) seconds Sodium 133 (133-145) mmol/L Potassium 4.4 (3.5-5.0) mmol/L Chloride 101 (101-111) mmol/L Carbon Dioxide 27 (22-32) mmol/L Anion Gap 5 (2-11) mmol/L BUN 53 H (6-24) mg/dL Creatinine 3.16 H (0.67-1.17) mg/dL Est GFR ( Amer) 24.0 (>60) Est GFR (Non-Af Amer) 18.6 (>60) BUN/Creatinine Ratio 16.8 (8-20) Glucose 108 H (70-100) mg/dL Lactic Acid (0.5-2.0) mmol/L Calcium 8.8 (8.6-10.3) mg/dL Magnesium 2.2 (1.9-2.7) mg/dL Total Bilirubin 0.40 (0.2-1.0) mg/dL AST 15 (13-39) U/L ALT 8 (7-52) U/L Alkaline Phosphatase 75 (34-104) U/L Myoglobin 80.3 (17.4-105.7) ng/mL Troponin I 0.04 H* (<0.04) ng/mL Total Protein 6.2 L (6.4-8.9) g/dL Albumin 3.1 L (3.2-5.2) g/dL Globulin 3.1 (2-4) g/dL Albumin/Globulin Ratio 1.0 (1-3) TSH 82.26 H (0.34-5.60) mcIU/mL Urine Color Urine Appearance Urine pH (5-9) Ur Specific [place] (1.010-1.030) Urine Protein (Negative) Urine Ketones (Negative) Urine Blood (Negative) Urine Nitrate (Negative) Urine Bilirubin (Negative) Urine Urobilinogen (Negative) Ur Leukocyte Esterase (Negative) Urine WBC (Auto) (Absent) Urine RBC (Auto) (Absent) Ur Squamous Epith Cells (Absent) Urine Bacteria (Absent) Hyaline Casts (Absent) Urine Glucose (Negative) Digoxin 3.8 H* (0.8-2.0) ng/ml Blood Type Antibody Screen Antibody Identification Direct Antiglob Test 09/11/17 09/11/17 09/11/17 Range/Units 10:29 10:29 11:40 WBC (3.5-10.8) 10^3/ul RBC (4.0-5.4) 10^6/ul Hgb (14.0-18.0) g/dl Hct (42-52) % MCV (80-94) fL MCH (27-31) pg MCHC (31-36) g/dl RDW (10.5-15) % Plt Count (150-450) 10^3/ul MPV (7.4-10.4) um3 Neut % (Auto) (38-83) % Lymph % (Auto) (25-47) % [place] % (Auto) (1-9) % Eos % (Auto) (0-6) % Baso % (Auto) (0-2) % Absolute Neuts (auto) (1.5-7.7) 10^3/ul Absolute Lymphs (auto) (1.0-4.8) 10^3/ul Absolute Monos (auto) (0-0.8) 10^3/ul Absolute Eos (auto) (0-0.6) 10^3/ul Absolute Basos (auto) (0-0.2) 10^3/ul Absolute Nucleated RBC 10^3/ul Nucleated RBC % INR (Anticoag Therapy) (0.77-1.02) APTT (26.0-36.3) seconds Sodium (133-145) mmol/L Potassium (3.5-5.0) mmol/L Chloride (101-111) mmol/L Carbon Dioxide (22-32) mmol/L Anion Gap (2-11) mmol/L BUN (6-24) mg/dL Creatinine (0.67-1.17) mg/dL Est GFR ( Amer) (>60) Est GFR (Non-Af Amer) (>60) BUN/Creatinine Ratio (8-20) Glucose (70-100) mg/dL Lactic Acid 0.4 L (0.5-2.0) mmol/L Calcium (8.6-10.3) mg/dL Magnesium (1.9-2.7) mg/dL Total Bilirubin (0.2-1.0) mg/dL AST (13-39) U/L ALT (7-52) U/L Alkaline Phosphatase (34-104) U/L Myoglobin (17.4-105.7) ng/mL Troponin I (<0.04) ng/mL Total Protein (6.4-8.9) g/dL Albumin (3.2-5.2) g/dL Globulin (2-4) g/dL Albumin/Globulin Ratio (1-3) TSH (0.34-5.60) mcIU/mL Urine Color Yellow Urine Appearance Clear Urine pH 6.0 (5-9) Ur Specific [place] 1.011 (1.010-1.030) Urine Protein 2+(100 mg/dl) H (Negative) Urine Ketones Negative (Negative) Urine Blood Negative (Negative) Urine Nitrate Negative (Negative) Urine Bilirubin Negative (Negative) Urine Urobilinogen Negative (Negative) Ur Leukocyte Esterase Negative (Negative) Urine WBC (Auto) Trace(0-5/hpf) (Absent) Urine RBC (Auto) Absent (Absent) Ur Squamous Epith Cells Present H (Absent) Urine Bacteria Absent (Absent) Hyaline Casts Present H (Absent) Urine Glucose Negative (Negative) Digoxin (0.8-2.0) ng/ml Blood Type O Positive Antibody Screen Positive Antibody Identification Anti-Fya Direct Antiglob Test Negative 09/11/17 09/11/17 Range/Units 12:11 12:11 WBC (3.5-10.8) 10^3/ul RBC (4.0-5.4) 10^6/ul Hgb (14.0-18.0) g/dl Hct (42-52) % MCV (80-94) fL MCH (27-31) pg MCHC (31-36) g/dl RDW (10.5-15) % Plt Count (150-450) 10^3/ul MPV (7.4-10.4) um3 Neut % (Auto) (38-83) % Lymph % (Auto) (25-47) % [place] % (Auto) (1-9) % Eos % (Auto) (0-6) % Baso % (Auto) (0-2) % Absolute Neuts (auto) (1.5-7.7) 10^3/ul Absolute Lymphs (auto) (1.0-4.8) 10^3/ul Absolute Monos (auto) (0-0.8) 10^3/ul Absolute Eos (auto) (0-0.6) 10^3/ul Absolute Basos (auto) (0-0.2) 10^3/ul Absolute Nucleated RBC 10^3/ul Nucleated RBC % INR (Anticoag Therapy) (0.77-1.02) APTT (26.0-36.3) seconds Sodium 134 (133-145) mmol/L Potassium 4.3 (3.5-5.0) mmol/L Chloride 103 (101-111) mmol/L Carbon Dioxide 27 (22-32) mmol/L Anion Gap 4 (2-11) mmol/L BUN 51 H (6-24) mg/dL Creatinine 3.06 H (0.67-1.17) mg/dL Est GFR ( Amer) 24.9 (>60) Est GFR (Non-Af Amer) 19.4 (>60) BUN/Creatinine Ratio 16.7 (8-20) Glucose 103 H (70-100) mg/dL Lactic Acid (0.5-2.0) mmol/L Calcium 8.7 (8.6-10.3) mg/dL Magnesium (1.9-2.7) mg/dL Total Bilirubin 0.40 (0.2-1.0) mg/dL AST 15 (13-39) U/L ALT 7 (7-52) U/L Alkaline Phosphatase 75 (34-104) U/L Myoglobin (17.4-105.7) ng/mL Troponin I 0.03 (<0.04) ng/mL Total Protein 6.0 L (6.4-8.9) g/dL Albumin 3.0 L (3.2-5.2) g/dL Globulin 3.0 (2-4) g/dL Albumin/Globulin Ratio 1.0 (1-3) TSH (0.34-5.60) mcIU/mL Urine Color Urine Appearance Urine pH (5-9) Ur Specific [place] (1.010-1.030) Urine Protein (Negative) Urine Ketones (Negative) Urine Blood (Negative) Urine Nitrate (Negative) Urine Bilirubin (Negative) Urine Urobilinogen (Negative) Ur Leukocyte Esterase (Negative) Urine WBC (Auto) (Absent) Urine RBC (Auto) (Absent) Ur Squamous Epith Cells (Absent) Urine Bacteria (Absent) Hyaline Casts (Absent) Urine Glucose (Negative) Digoxin 3.7 H* (0.8-2.0) ng/ml Blood Type Antibody Screen Antibody Identification Direct Antiglob Test Assess/Plan/Problems-Billing Mr Alexander is an 89 yo M who has a h/o CAD, s/p TAVR, hypothyroidism, HTN, CKD stage III and chronic anemia for which he does not want to pursue workup presented to the ER wtih c/o altered mental status and was found to be in acute on chronic renal failure and digoxin toxicity. - Patient Problems (1) Digoxin toxicity Current Visit: Yes Status: Acute Code(s): T46.0X1A - POISONING BY CARDI- STIM GLYCOS/DRUG SIMLAR ACT, ACC, INIT SNOMED Code(s): 64917092 Comment: The patient received digibind. Hold digoxin indefinitely. (2) Acute on chronic renal failure Current Visit: Yes Status: Acute Code(s): N17.9 - ACUTE KIDNEY FAILURE, UNSPECIFIED; N18.9 - CHRONIC KIDNEY DISEASE, UNSPECIFIED SNOMED Code(s): 688373682 Comment: Creatinine is improved with hydration. He drank his milk and ensure today. Will not pursue any further work up. His creatinine yesterday is close to levels from early 2017. (3) Anemia Current Visit: Yes Status: Acute Code(s): D64.9 - ANEMIA, UNSPECIFIED SNOMED Code(s): 090960406 Comment: Improved after 1 unit PRBC transfusion. He does not want to work up his anemia. (4) HTN (hypertension) Current Visit: Yes Status: Acute Code(s): I10 - ESSENTIAL (PRIMARY) HYPERTENSION SNOMED Code(s): 36533570 Comment: Continue amlodipine 10mg daily, hydralazine 20mg TID and add back coreg 3.125mg BID. (5) CAD (coronary artery disease) Current Visit: Yes Status: Acute Code(s): I25.10 - ATHSCL HEART DISEASE OF [place] CORONARY ARTERY W/O ANG PCTRS SNOMED Code(s): 67533511 Comment: No issues at this time. Pt does not want any aggressive treatment. Continue aspirin. (6) DVT prophylaxis Current Visit: Yes Status: Acute Code(s): OIQ5139 - SNOMED Code(s): 089906466 Comment: SCDs alone secondary to marked anemia (7) DNR (do not resuscitate) Current Visit: Yes Status: Acute Status and Disposition: d/c home
--- NOTE | 2017-09-20 16:47 | ED ---
I, Catalina Brown, scribed for Bon Castaneda MD on 09/11/17 at 1420 . Progress - Consult/PCP Time Called: 14:05 Consult/PCP: Dr. Catalan Consult Reason/Comments: I spoke with Dr. Catalan about admitting the patient. The documentation as recorded by the scribKevin chambers Natalie accurately reflects the service I personally performed and the decisions made by me, Bon Castaneda MD.
--- NOTE | 2017-09-27 18:26 | DS ---
CC: Dr. Torres * DISCHARGE SUMMARY: DATE OF ADMISSION: 09/11/17 DATE OF DISCHARGE: 09/14/17 PRIMARY CARE PROVIDER: Dr. Torres. PRINCIPAL DIAGNOSES: 1. Chronic anemia. 2. Altered mental status, secondary to digoxin toxicity - resolved. 3. Elevated creatinine on admission, not meeting acute kidney injury criteria. DISCHARGE MEDICATIONS: 1. Amlodipine 10 mg p.o. daily. 2. Celexa 20 mg p.o. daily. 3. Coreg 3.125 mg p.o. b.i.d. 4. Aspirin 81 mg p.o. daily. 5. Amitriptyline 25 mg p.o. q.h.s. p.r.n. insomnia. 6. Vitamin B12 1000 mcg p.o. daily. 7. Plavix 75 mg p.o. daily. 8. Folic acid 1 mg p.o. daily. 9. Hydralazine 25 mg p.o. t.i.d. 10. Levothyroxine 50 mcg p.o. daily. HOSPITAL COURSE: Mr. Alexander is an 89-year-old male who presented to the emergency room on 09/11/17 with generalized weakness. The patient has a history of chronic anemia, which he has refused to be evaluated for by Dr. Kaur. He is also status post transaortic valve replacement, has a history of coronary artery disease, and atrial fibrillation. The patient was found to be digoxin toxic with a digoxin level of 3.6 on admission. As the patient developed bradycardia on the night of admission with second-degree heart block type 1, Digibind was administered. Subsequent digoxin levels were not obtained as the Digibind falsely elevates these. The patient did have improvement in his mental status with clearing of digoxin toxicity and improvement in his creatinine. He made it very clear that he no longer wanted to be in the hospital. He wanted to be home. I was very concerned about the patient's being able to continue to care for him at home the way she has been. We discussed hospice on a daily basis; however, the patient adamantly refuses to accept hospice believing that hospice is only there to "kill" a patient. Ultimately, the patient's took the patient home. She understands that she can contact Hospice if he becomes more and more confused and if she needs more help. In terms of the elevated creatinine, the patient presented with a creatinine of 3.16. His baseline is around 2.41. He does not meet ELMER criteria with greater than 2-time increase in his creatinine. His creatinine did trend down with hydration to 2.57 on the day of discharge. The patient was also found to be anemic with a hemoglobin of 6.9 on admission. This trended down to 6.4 on the day after admission. He was transfused 1 unit of packed red blood cells which brought his hemoglobin up to 8.3 the day prior to admission. The patient reaffirmed that he did not want any evaluation for his chronic anemia. Of note, the patient had been refusing to take his Synthroid at home per his . The patient's TSH was markedly elevated at 82.26. As he had not been taking his Synthroid dose, 50 mcg of Synthroid was initiated in the hospital. The patient has been explained that he needs to continue to take this medication. A followup TSH can be obtained as an outpatient in 3 to 4 weeks. FOLLOWUP CONCERNS: The patient is being discharged home on 09/14/17. ACTIVITY LEVEL: As tolerated. DIET: Regular as tolerated. CONDITION ON DISCHARGE: Stable. FOLLOWUP: The patient has a followup appointment with Dr. Torres for 09/20/17 at 2:10 p.m.. TIME SPENT: Thirty-five minutes was spent discharging this patient. [id number] #: [id number] MTDD
== END 2017-09-14 17:05 | disposition home or self-care (01) | DRG 811 ==
LOC: ED 09:40 → MEDTELE 16:10
PROVIDERS: ADMIT Internal Medicine; ATTEND Hospitalist
PROC: 30233N1 Transfusion of Nonautologous Red Blood Cells into Peripheral Vein, Percutaneous Approach (ICD-10-PCS; principal; 2017-09-12)
DX: D64.9 Anemia, unspecified (principal); E43 Unspecified severe protein-calorie malnutrition; I48.91 Unspecified atrial fibrillation; E86.0 Dehydration; N18.3 Chronic kidney disease, stage 3 (moderate); R64 Cachexia; Z68.1 Body mass index [BMI] 19.9 or less, adult; R53.1 Weakness; I44.1 Atrioventricular block, second degree; F32.9 Major depressive disorder, single episode, unspecified; E03.9 Hypothyroidism, unspecified; I12.9 Hypertensive chronic kidney disease with stage 1 through stage 4 chronic kidney disease, or unspecified chronic kidney disease; I25.10 Atherosclerotic heart disease of native coronary artery without angina pectoris; R41.82 Altered mental status, unspecified; Z66 Do not resuscitate; M19.90 Unspecified osteoarthritis, unspecified site; T46.0X5A Adverse effect of cardiac-stimulant glycosides and drugs of similar action, initial encounter; N40.0 Benign prostatic hyperplasia without lower urinary tract symptoms; R00.1 Bradycardia, unspecified; K62.89 Other specified diseases of anus and rectum; Z86.73 Personal history of transient ischemic attack (TIA), and cerebral infarction without residual deficits; Z95.5 Presence of coronary angioplasty implant and graft; Z98.42 Cataract extraction status, left eye; Z98.41 Cataract extraction status, right eye; Z95.2 Presence of prosthetic heart valve; Z88.8 Allergy status to other drugs, medicaments and biological substances; Z87.891 Personal history of nicotine dependence; Y92.9 Unspecified place or not applicable; Z97.0 Presence of artificial eye; Z82.49 Family history of ischemic heart disease and other diseases of the circulatory system; R53.83 Other fatigue
CPT/HCPCS: 36415; 70450; 71045; 80048; 80053; 80162; 81003; 81015; 82270; 83605; 83735; 83874; 84132; 84443; 84484; 85025; 85027; 85610; 85730; 86850; 86870; 86880; 86900; 86901; 86905; 86922; 87040; 93005; 96374; 96375; 99284; A9270-GY; J0360; J1162; P9040